=== PATIENT | male | born 1950 | race Two or more races ===

== ENCOUNTER 2018-07-14 06:29 | Inpatient (IN) | payer OTHER ==
--- NOTE | 2018-07-13 14:11 | Pre-Procedure Note/Attestation ---
Pre-Procedure Note/Attestation Complete Prior to Procedure Planned Procedure: left Procedure Narrative: left total knee arthroplasty Indications for Procedure Pre-Operative Diagnosis: Left knee arthritis Attestation I attest that I discussed the nature of the procedure; its benefits; risks and complications; and alternatives (and the risks and benefits of such alternatives ), prior to the procedure, with the patient (or the patient's legal vendor representatives). I attest that, if there was a reasonable possibility of needing a blood transfusion, the patient (or the patient's legal vendor representatives) was given the [facility] standardized written summary, pursuant to the Rhett Kari Blood Safety Act ([place] Health and Safety Code # 1645, as amended). I attest that I re-evaluated the patient just prior to the surgery and that there has been no change in the patient's H&P, except as documented below: NONE Steve Colorado MD Jul 13, 2018 14:11
[~2018-07-14] VITALS: Ht 174 cm; Wt 107.4 kg
[2018-07-14] VITALS (12 sets, daily range): BP systolic 103–131; BP diastolic 50–79
[~2018-07-14 06:29] MED LIST: HYTRIN5 MG PO; LIPITOR40 MG ORAL; ceFAZolin 1gm in D5W 55ml IVPB ONE; celeBREX 200mg Cap **SURGERY PATIENTS ONLY ORAL ONE; oxyCONTIN 20mg tab ORAL ONE
[2018-07-14] MEDS ORDERED: Ropivacaine 5mg/ml Vial 30ml INJ ONE (07:18)
[2018-07-14] MEDS ORDERED: Lidocaine 1% MPF 10mg/ml 5ml ONE (07:18)
[2018-07-14] MEDS ORDERED: fentaNYL 100 mcg/2 mL IV ONE ×2 (07:22→11:02)
[2018-07-14] MEDS ORDERED: Midazolam 2mg/2ml Inj ONE (07:22)
[2018-07-14] MEDS ORDERED: Propofol 200mg/20ml IV ONE (07:23)
[2018-07-14] MEDS ORDERED: D5 1/2NS w/KCl 20mEq 1,000 ML IV SCH (07:40)
[2018-07-14] MEDS ORDERED: Morphine Sulfate 4mg/ml Inj (IV USE ONLY) IVP PRN (07:45)
[2018-07-14] MEDS ORDERED: Norco 5mg/325mg tab ORAL PRN (07:45)
[2018-07-14] MEDS ORDERED: HYDROcodone/Acetamin 7.5/325 tab ORAL PRN ×2 (07:45→16:00)
[2018-07-14] MEDS ORDERED: Milk of Magnesia 30ml Ud ORAL PRN ×2 (07:45→16:00)
[2018-07-14] MEDS ORDERED: Morphine Sulfate 2mg/ml Inj(IV/IM USE ONLY) IVP PRN ×5 (07:45→16:00)
[2018-07-14] MEDS ORDERED: Zemuron 50mg/5ml Inj IV ONE (08:08)
--- NOTE | 2018-07-14 08:19 | Anethesia Preoperative Eval ---
Anesthesia Pre-op PMH/ROS General Date of Evaluation: Jul 14, 2018 Time of Evaluation: 08:15 Anesthesiologist: Palak ASA Score: ASA 3 Mallampati Score Class I : Soft palate, uvula, fauces, pillars visible Class II: Soft palate, uvula, fauces visible Class III: Soft palate, base of uvula visible Class IV: Only hard plate visible Mallampati Classification: Class II Surgeon: Miroslava Diagnosis: L knee DJD Surgical Procedure: L knee arthroplasty Anesthesia History: none Social History: alcohol use - occasional Family History: no anesthesia problems Allergies: Coded Allergies: No Known Allergies (Unverified , 07/06/18) Past Medical History Cardiovascular: Reports: arrhythmia; Denies: HTN, CAD, NC, valve dz, other Pulmonary: Denies: asthma, COPD, APRIL, other Gastrointestinal/Genitourinary: Reports: GERD, other - BPH s/p TUPR; Denies: CRI, ESRD Neurologic/Psychiatric: Reports: other - chronic pain; Denies: dementia, CVA, depression/anxiety, TIA Endocrine: Denies: DM, hypothyroidism, steroids, other HEENT: Reports: cataract (L), cataract (R) - s/p Sx bilateral Hematology/Immune: Reports: anemia - mild; Denies: DVT, bleeding disorder, other Musculoskeletal/Integumentary: Reports: DJD; Denies: OA, RA, DDD, edema, other Other: obesity PMH Narrative: as above PSxH Narrative: Back Sx x 3, TUPR, T&A Anesthesia Pre-op Phys. Exam Physician Exam Last Vital Signs Date Time Temp Pulse Resp B/P (MAP) Pulse Ox O2 Delivery O2 Flow Rate FiO2 07/14/18 07:30 98.1 55 20 111/65 (80) 100 98.1 07/14/18 07:16 Room Air Constitutional: NAD Neurologic: CN 2-12 intact Cardiovascular: RRR, no M/R/G Respiratory: CTA Gastrointestinal: S/NT/ND Airway Exam Mallampati Score: Class II MO: limited Neck: stiff ROM: limited Teeth: missing Dentures: no upper, no lower Anesthesia Pre-op A/P Labs see chart Studies Pre-op Studies: EKG - NSR, CXR - WNL, echo - EF 60%, other - Negative stress test Risk Assessment & Plan Assessment: ASA 3 Plan: GA with LMA L femoral nerve block for postoperative pain control Status Change Before Surgery: No Pre-Antibiotics Drug: Ancef 2gr Given Within 1 Hr of Incision: Yes Time Given: 09:10 Joaquín Cid MD Jul 14, 2018 08:19
[2018-07-14] MEDS ORDERED: Bacitracin 50000 Units Vial ONE (08:26)
[2018-07-14] MEDS ORDERED: NeoSporin Gu Irrig 1ml Amp IRRIG ONE (08:26)
[2018-07-14] MEDS ORDERED: Tranexamic Acid 500 MG in NS 55 ML IVPB ONE (08:30)
[2018-07-14] MEDS ORDERED: Tranexamic Acid 1,000 MG in NS 55 ML IVPB ONE (08:30)
[2018-07-14] MEDS ORDERED: Docusate 100mg cap ORAL SCH (09:00)
[2018-07-14] MEDS ORDERED: Enoxaparin 40mg Inj SUBQ SCH (09:00)
[2018-07-14] MEDS ORDERED: oxyCONTIN 20mg tab ORAL SCH (09:00)
[2018-07-14] MEDS ORDERED: celeBREX 200mg Cap **SURGERY PATIENTS ONLY ORAL SCH (09:00)
[2018-07-14] MEDS ORDERED: ePHEDrine 50mg/ml Inj ONE (09:41)
[2018-07-14] MEDS ORDERED: Sodium Chloride 10ml vial INJ ONE ×2 (09:41→10:00)
[2018-07-14] MEDS ORDERED: Morphine Sulfate 10mg/ml Inj ONE (09:59)
[2018-07-14] MEDS ORDERED: Ketorolac 30mg Inj ONE (10:00)
[2018-07-14] MEDS ORDERED: NS Irrig 1000ml IRRIG ONE (10:30)
[2018-07-14] MEDS ORDERED: LR 1000ml 1,000 ML IVLG SCH (10:36)
[2018-07-14] MEDS ORDERED: Meperidine 50mg/ml Inj(FOR RIGORS ONLY) IV PRN (10:45)
[2018-07-14] MEDS ORDERED: Midazolam 2mg/2ml Inj IVP PRN (10:45)
[2018-07-14] MEDS ORDERED: fentaNYL 100 mcg/2 mL IV PRN (10:45)
[2018-07-14] MEDS ORDERED: Ketorolac 30mg Inj IV PRN (10:45)
[2018-07-14] MEDS ORDERED: DiphenhydrAMINE 50mg/ml Inj IVP PRN (10:45)
--- NOTE | 2018-07-14 12:19 | Brief Operative Note ---
Immediate Post Operative Note Operative Note Chief Complaint: left knee pain Pre-op Diagnosis: left knee arthritis Procedure: left tka Post-op Diagnosis: same as pre-op Findings: consistent w/pre-op dx studies Surgeon: md vianca Electronic Data Interchange Specialist: juan m cantor Anesthesiologist: md bipin Anesthesia: general Specimen: yes Complications: none Condition: stable Fluids: ns Estimated Blood Loss: minimal Drains: none Implant(s) used?: Yes - Kiesha Hobbs Jul 14, 2018 12:19
--- NOTE | 2018-07-14 12:33 | Immediate Post-Op Evaluation ---
Immediate Post-Op Evalulation Immediate Post-Op Evalulation Procedure: L total knee arthroplasty Date of Evaluation: Jul 14, 2018 Time of Evaluation: 12:31 IV Fluids: 1500 Blood Products: none Estimated Blood Loss: 100 Urinary Output: 500 Blood Pressure Systolic: 116 Blood Pressure Diastolic: 74 Pulse Rate: 86 Respiratory Rate: 20 O2 Sat by Pulse Oximetry: 98 Temperature (Fahrenheit): 97.8 Pain Score (1-10): 3 Nausea: No Vomiting: No Complications none Patient Status: awake, patent, none Hydration Status: adequate Joaquín Cid MD Jul 14, 2018 12:33
[2018-07-14] MEDS ORDERED: ceFAZolin sod 2 GM in D5W 110 ML IV SCH (14:00)
--- NOTE | 2018-07-14 14:45 | Diagnostic Imaging Report ---
Indication: Postoperative, status post total knee arthroplasty Technique: 2 views of the left knee Comparison: none Findings: There is a left knee arthroplasty in good position, appearing well aligned. Retained air from the surgical exposure is seen within the soft tissues. No acute fractures or dislocation Impression: Postoperative left knee. No unusual features
[2018-07-14] MEDS: ceFAZolin 1gm/50ml Premix 50 ML IV SCH (16:47)
[2018-07-14] MEDS: D5 1/2NS w/KCl 20mEq 1,000 ML IV SCH (16:47)
[2018-07-14] MEDS: Docusate 100mg cap ORAL SCH (18:18)
[2018-07-14] MEDS: Norco 5mg/325mg tab ORAL PRN ×2 (18:18→23:18)
--- NOTE | 2018-07-14 18:43 | General Progress Note ---
Assessment/Plan Status Narrative s/p total knee arthroplasty hyperlipid BPH Assessment/Plan resume preop meds terazosin and lipittor pt ot dvt prophyalxis monitor cbc paincontrol perioperative prophyalxis antibiotic Subjective Date patient seen: Jul 14, 2018 Time patient seen: 18:35 Constitutional: Reports: no symptoms HEENT: Reports: no symptoms Cardiovascular: Reports: no symptoms Respiratory: Reports: no symptoms Allergies: Coded Allergies: No Known Allergies (Unverified , 07/06/18) Objective Last 24 Hour Vital Signs Date Time Temp Pulse Resp B/P (MAP) Pulse Ox O2 Delivery O2 Flow Rate FiO2 07/14/18 16:00 98.0 65 20 103/62 (76) 100 98.0 07/14/18 13:50 77 16 116/68 98 Nasal Cannula 3 07/14/18 13:30 97.4 07/14/18 13:23 97.6 75 15 123/69 97 Nasal Cannula 3 97.6 07/14/18 13:15 79 16 119/65 97 Nasal Cannula 3 07/14/18 13:00 77 18 131/69 98 Nasal Cannula 3 07/14/18 12:59 97.5 07/14/18 12:50 74 14 119/68 96 Nasal Cannula 3 07/14/18 12:40 91 20 131/66 99 Simple Mask 6 07/14/18 12:33 208.0 86 20 98 07/14/18 12:30 87 16 120/79 98 Simple Mask 6 07/14/18 12:25 94 18 114/76 100 Simple Mask 6 07/14/18 12:18 97.4 92 20 118/75 99 Simple Mask 6 97.4 07/14/18 07:30 98.1 55 20 111/65 (80) 100 98.1 07/14/18 07:16 Room Air Height (Feet): 5 Height (Inches): 8.50 Weight (Pounds): 230 General Appearance: WD/WN Neck: other - no jvd Cardiovascular: normal rate, regular rhythm Respiratory/Chest: lungs clear Abdomen: normal bowel sounds, non tender, soft Extremities: other - no clubbing or cyanosis Ta Coombs MD Jul 14, 2018 18:43
[2018-07-14] MEDS: oxyCONTIN 20mg tab ORAL SCH (20:29)
[2018-07-14] MEDS: Enoxaparin 30mg Inj SUBQ SCH (20:30)
--- NOTE | 2018-07-14 23:47 | Operative Note - Dictated ---
DATE OF OPERATION: 07/14/2018 PREOPERATIVE DIAGNOSIS: Left knee end-stage arthritis, medial compartment. POSTOPERATIVE DIAGNOSIS: Left knee end-stage arthritis, medial compartment. PROCEDURE: Left total knee arthroplasty using Laney system, size 5 Triathlon femur, size 6 Triathlon primary tibial base plate, 33 mm ultra cross-linked polyethylene patella, and 11 mm ultra cross-linked polyethylene insert. SURGEON: Steve Colorado M.D. CITRIX ADMINISTRATOR: Kiesha Choe PA-C ANESTHESIOLOGIST: Joaquín Cid M.D. ANESTHESIA: General LMA anesthesia. ESTIMATED BLOOD LOSS: Less than 20 mL. COMPLICATIONS: None. TOURNIQUET TIME: 80 minutes. BRIEF HISTORY: The patient is a pleasant 68-year-old gentleman who has had ongoing left knee pain. He failed nonoperative treatment. After full discussion of risks and benefits of surgery and complications associated with it including infection, bleeding, neurovascular complication, possibility of continued pain, possibility of continued stiffness, possible loss of motion, possible instability, possibility of need for further surgery, possible need for other complications that may arise down the line, hardware failure, as well as DVT and PE, he opted for surgical treatment as described above. OPERATIVE PROCEDURE: The patient was brought to the operating table and was placed supine. All pressure points were well padded. General LMA anesthesia was induced. The left knee was prepped and draped in usual sterile fashion. The left leg was exsanguinated and tourniquet was inflated to 275 mmHg. Prior to tourniquet inflation, preop antibiotics and tranexamic acid was given. A standard anterior approach to the knee was undertaken. Medial parapatellar arthrotomy was performed. Medial release was performed. The patella was everted and the knee was flexed, and ACL and PCL were resected. Entry into the femur was obtained using a drill. An intramedullary guide was placed in the femur and 5-degree valgus cut was performed without any complication. Subsequently the sizing was performed and size 5 appeared to be the right size. The guide was placed in 3 degrees of external rotation, and anterior, posterior, and chamfer cuts were performed. At this point, size 5 femur was applied and there was excellent press fit. PEG holes were drilled and in the process, femur was lateralized slightly. Once this was performed, care was given to the tibia. The trial femur was removed. The posterior, medial and lateral retractors were placed around the tibia. The external tibial guide was then applied and slope was recreated and 2 mm was taken off the most involved side, which was the medial side. At this point, a standard tibial cut was performed, recreating anatomical axis. Once this was completed, the flexion-extension gap was checked and appeared to be perfect. At this point, the tibial sizing was performed and size 6 appeared to be the right size. The central PEG was then punched. At this point, the tibial trial, femoral trial, and poly trials were placed and size 9 appeared to be slightly loose and size 11 appeared to be the perfect size. There was excellent medial lateral as well as anterior posterior stability. At this point, the care was given to the patella. The patella was everted. It measured 24 mm. A standard freehand cut of the patella was performed and final patella was 13 mm. The sizing was performed and 33 mm patella was the right size. PEG holes were drilled. At this point, all components were placed through range of motion and stability, and range of motion was checked. This was excellent. Patellofemoral tracking was checked and it was perfect. At this point, all wounds were thoroughly irrigated using copious amount of fluid. All trial components were removed. Knee was washed out thoroughly with Simpulse irrigation. Cement was mixed and the tibial component, femoral component, patella components were all cemented. All excess cement was removed. Subsequently, the trialing was performed and size 11 poly appeared to be the right size with full extension, full flexion, and stability at 0, 30 degrees, 45 degrees, and 90 degrees of flexion. Therefore, at this point, the locking mechanism of the tibia was checked and was completely freed and the actual poly was then locked in and rechecked and appeared to be in perfect locking. Wounds were thoroughly irrigated using copious amount of fluid. At this point, the knee was extended. The tourniquet was deflated. All bleeders were stopped. Subsequently the medial parapatellar arthrotomy was closed using #1 Vicryl suture. Subcutaneous tissue was closed using 2-0 Vicryl suture. The skin was closed using 3-0 Monocryl suture and a sterile standard dressing was applied. The patient was placed in a knee immobilizer, was taken to recovery room in stable condition. All lap counts and instrument counts were correct. Steve Colorado M.D. DR: Sandra JOB#: [id number] CC:
[2018-07-15] VITALS: BP 113/63
[2018-07-15] MEDS: ceFAZolin 1gm/50ml Premix 50 ML IV SCH (00:42)
[2018-07-15] MEDS: Morphine Sulfate 4mg/ml Inj (IV USE ONLY) IVP PRN ×4 (03:32→21:35)
[2018-07-15] MEDS: D5 1/2NS w/KCl 20mEq 1,000 ML IV SCH ×2 (03:33→21:28)
[2018-07-15 04:00] VITALS: BP 105/57
[2018-07-15] MEDS: Norco 5mg/325mg tab ORAL PRN ×2 (06:13→23:58)
--- NOTE | 2018-07-15 07:19 | Orthopedic Progress Note ---
Orthopedic - Progress Note Subjective Symptoms: improved Objective Vital Signs Laboratory Tests Test 07/15/18 06:40 White Blood Count Pending Red Blood Count Pending Hemoglobin Pending Hematocrit Pending Mean Corpuscular Volume Pending Mean Corpuscular Hemoglobin Pending Mean Corpuscular Hemoglobin Concent Pending Red Cell Distribution Width Pending Platelet Count Pending Mean Platelet Volume Pending Neutrophils (%) (Auto) Pending Lymphocytes (%) (Auto) Pending Monocytes (%) (Auto) Pending Eosinophils (%) (Auto) Pending Basophils (%) (Auto) Pending Last 24 Hour Vital Signs Date Time Temp Pulse Resp B/P (MAP) Pulse Ox O2 Delivery O2 Flow Rate FiO2 07/15/18 04:00 99.5 67 19 105/57 (73) 98 99.5 07/15/18 00:00 99.1 56 18 113/63 (80) 100 99.1 07/14/18 21:00 Room Air 07/14/18 20:00 99.5 54 18 106/50 (68) 100 99.5 07/14/18 16:00 98.0 65 20 103/62 (76) 100 98.0 07/14/18 13:50 77 16 116/68 98 Nasal Cannula 3 07/14/18 13:30 97.4 07/14/18 13:23 97.6 75 15 123/69 97 Nasal Cannula 3 97.6 07/14/18 13:15 79 16 119/65 97 Nasal Cannula 3 07/14/18 13:00 77 18 131/69 98 Nasal Cannula 3 07/14/18 12:59 97.5 07/14/18 12:50 74 14 119/68 96 Nasal Cannula 3 07/14/18 12:40 91 20 131/66 99 Simple Mask 6 07/14/18 12:33 208.0 86 20 98 07/14/18 12:30 87 16 120/79 98 Simple Mask 6 07/14/18 12:25 94 18 114/76 100 Simple Mask 6 07/14/18 12:18 97.4 92 20 118/75 99 Simple Mask 6 97.4 07/14/18 07:30 98.1 55 20 111/65 (80) 100 98.1 I&O Intake and Output 07/14/18 07/15/18 19:00 07:00 Intake Total 2045 ml Output Total 600 ml Balance 1445 ml Intake Oral 1220 ml IV Total 825 ml Output Urine Total 600 ml Stool Total 0 ml Wound: clean, dry, intact Drains: none Neuro Status: normal Vascular Status: normal Additional Comments Xray reviewed- excellent Assessment Post-op Diagnosis POD 1 Procedure Performed left tka Plan Plan: PT, discharge plan - to rehab on friday, other - labs pending, will follow Kiesha Choe Jul 15, 2018 07:19
[2018-07-15 07:25] LABS: BASOPHILS % (AUTO) 0.6 % (0.0-2.0); EOSINOPHILS % (AUTO) 1.7 % (0.0-3.0); HEMATOCRIT 35.2 % (42.0-52.0); HEMOGLOBIN 12.1 G/DL (14.2-18.0); LYMPHOCYTES % (AUTO) 14.8 % (20.0-45.0); MEAN CORPUSCULAR VOLUME 93 FL (80-99); MONOCYTES % (AUTO) 9.7 % (1.0-10.0); NEUTROPHILS % (AUTO) 73.2 % (45.0-75.0); PLATELET COUNT 159 K/UL (150-450); RED BLOOD COUNT 3.76 M/UL (4.70-6.10); RED CELL DISTRIBUTION WIDTH 11.7 % (11.6-14.8); WHITE BLOOD COUNT 8.7 K/UL (4.8-10.8)
[2018-07-15 08:00] VITALS: BP 119/64
[2018-07-15] MEDS: Docusate 100mg cap ORAL SCH ×3 (08:50→17:33)
[2018-07-15] MEDS: oxyCONTIN 20mg tab ORAL SCH ×2 (08:50→21:29)
[2018-07-15] MEDS: celeBREX 200mg Cap **SURGERY PATIENTS ONLY ORAL SCH (08:51)
[2018-07-15] MEDS ORDERED: Acetaminophen IV (Non formulary) 1,000 MG/100 ML ML IV ONE (09:00)
[2018-07-15] MEDS ORDERED: LR 1000ml ONE (09:00)
[2018-07-15] MEDS: Enoxaparin 30mg Inj SUBQ SCH (09:00)
[2018-07-15] MEDS ORDERED: Atropine Sulfate 0.4mg/ml inj ONE (09:00)
[2018-07-15] MEDS ORDERED: NS Irrig 1000ml ONE (09:00)
[2018-07-15] MEDS ORDERED: Sterile Water Irrig 1000ml IRRIG ONE (09:00)
--- NOTE | 2018-07-15 10:44 | 48 Hour Post Anesthesia Eval ---
Post Anesthesia Evaluation Procedure: L total knee arthroplasty Date of Evaluation: Jul 15, 2018 Time of Evaluation: 10:43 Blood Pressure Systolic: 116 0: 72 Pulse Rate: 68 Respiratory Rate: 20 Temperature (Fahrenheit): 97.6 O2 Sat by Pulse Oximetry: 98 Airway: patent Nausea: No Vomiting: No Pain Intensity: 3 Hydration Status: adequate Cardiopulmonary Status: stable Mental Status/LOC: patient returned to baseline Follow-up Care/Observations: n/a Post-Anesthesia Complications: none Follow-up care needed: N/A Joaquín Cid MD Jul 15, 2018 10:44
[2018-07-15 12:32] VITALS: BP 116/65
--- NOTE | 2018-07-15 15:24 | General Progress Note ---
Assessment/Plan Status Narrative S/P TOTAL KNEE ARTHROPLASTY DOING WELL NO FEVER NO CHILLS HAS A LOT OF PAIN Assessment/Plan resume preop meds terazosin and lipittor pt ot dvt prophyalxis monitor cbc paincontrol perioperative prophyalxis antibiotic NEEDS MORE PHYSICAL THERPAY Subjective Date patient seen: Jul 15, 2018 Time patient seen: 15:22 Constitutional: Reports: no symptoms HEENT: Reports: no symptoms Cardiovascular: Reports: no symptoms Respiratory: Reports: no symptoms Allergies: Coded Allergies: No Known Allergies (Unverified , 07/06/18) Subjective has been watt ving a lot ofpain no fever nochills no carlee stpain no dilpoipia Objective Last 24 Hour Vital Signs Date Time Temp Pulse Resp B/P (MAP) Pulse Ox O2 Delivery O2 Flow Rate FiO2 07/15/18 14:35 99.4 07/15/18 14:05 99.4 07/15/18 12:32 99.4 61 20 116/65 (82) 98 99.4 07/15/18 10:44 207.7 68 20 98 07/15/18 09:00 Room Air 07/15/18 08:52 99.5 07/15/18 08:50 99.5 07/15/18 08:00 99.5 67 20 119/64 (82) 96 99.5 07/15/18 04:00 99.5 67 19 105/57 (73) 98 99.5 07/15/18 00:00 99.1 56 18 113/63 (80) 100 99.1 07/14/18 21:00 Room Air 07/14/18 20:00 99.5 54 18 106/50 (68) 100 99.5 07/14/18 16:00 98.0 65 20 103/62 (76) 100 98.0 Intake and Output 07/14/18 07/15/18 19:00 07:00 Intake Total 2045 ml Output Total 600 ml Balance 1445 ml Intake Oral 1220 ml IV Total 825 ml Output Urine Total 600 ml Stool Total 0 ml Laboratory Tests 07/15/18 06:40: White Blood Count 8.7, Red Blood Count 3.76L, Hemoglobin 12.1L, Hematocrit 35.2L , Mean Corpuscular Volume 93, Mean Corpuscular Hemoglobin 32.2H, Mean Corpuscular Hemoglobin Concent 34.5, Red Cell Distribution Width 11.7, Platelet Count 159, Mean Platelet Volume 7.4, Neutrophils (%) (Auto) 73.2, Lymphocytes (% ) (Auto) 14.8L, Monocytes (%) (Auto) 9.7, Eosinophils (%) (Auto) 1.7, Basophils (%) (Auto) 0.6 Height (Feet): 5 Height (Inches): 8.50 Weight (Pounds): 236 General Appearance: WD/WN Neck: non-tender Cardiovascular: normal rate, regular rhythm, no JVD Respiratory/Chest: lungs clear Abdomen: non tender, soft Extremities: other - no clubbing Ta Coombs MD Jul 15, 2018 15:24
[2018-07-15 16:00] VITALS: BP 116/65
[2018-07-15 20:00] VITALS: BP 108/57
[2018-07-15] MEDS: Atorvastatin 20mg tab ORAL SCH (21:29)
[2018-07-15] MEDS: ceFAZolin sod 1 GM in NS 55 ML IVP SCH (22:23)
[2018-07-15 22:25] LABS: BASOPHILS % (AUTO) 0.8 % (0.0-2.0); EOSINOPHILS % (AUTO) 0.1 % (0.0-3.0); HEMOGLOBIN 11.6 G/DL (14.2-18.0); LYMPHOCYTES % (AUTO) 8.1 % (20.0-45.0); MEAN CORPUSCULAR VOLUME 95 FL (80-99); MONOCYTES % (AUTO) 9.7 % (1.0-10.0); NEUTROPHILS % (AUTO) 81.3 % (45.0-75.0); PLATELET COUNT 165 K/UL (150-450); RED BLOOD COUNT 3.58 M/UL (4.70-6.10); RED CELL DISTRIBUTION WIDTH 11.5 % (11.6-14.8); WHITE BLOOD COUNT 12.2 K/UL (4.8-10.8)
[2018-07-15 22:29] LABS: ANION GAP 9 mmol/L (5-15); BLOOD UREA NITROGEN 10 mg/dL (7-18); CALCIUM 8.3 MG/DL (8.5-10.1); CARBON DIOXIDE 25 MMOL/L (21-32); CHLORIDE 106 MMOL/L (98-107); CREATININE 0.9 MG/DL (0.55-1.30); POTASSIUM 3.6 MMOL/L (3.5-5.1); SODIUM 140 MMOL/L (136-145)
[2018-07-15 22:34] LABS: ALANINE AMINOTRANSFERASE 26 U/L (12-78); ALKALINE PHOSPHATASE 103 U/L (46-116); ASPARTATE AMINO TRANSFERASE 21 U/L (15-37); BILIRUBIN,TOTAL 0.5 MG/DL (0.2-1.0)
[2018-07-16] VITALS (13 sets, daily range): BP systolic 98–134; BP diastolic 57–78
[2018-07-16] MEDS: ceFAZolin sod 1 GM in NS 55 ML IVP SCH ×3 (05:03→21:03)
[2018-07-16] MEDS ORDERED: Sterile Water For Irrig 2000ml IRRIG ONE ×2 (06:00)
[2018-07-16] MEDS ORDERED: Sterile Water Irrig 1000ml IRRIG ONE (06:00)
[2018-07-16] MEDS ORDERED: LR 1000ml ONE (06:00)
[2018-07-16] MEDS ORDERED: NS Irrig 1000ml ONE (06:00)
--- NOTE | 2018-07-16 06:10 | Urology Progress Note ---
Assessment/Plan Assessment/Plan urinary retention BPH probable neurogenic bladder hematuria r/o urethral stx, BNC or false passage will need to proceed with cysto on urgent basis will place sp tube if not able to pass urethral carvajal d/w pt fully d/w Dr. Coombs d/w Dr. Puente, ok to bend pt's knee abx prophylaxis lovenox was held Subjective Allergies: Coded Allergies: No Known Allergies (Unverified , 07/06/18) Subjective pt has not voided all night Objective Last 24 Hour Vital Signs Date Time Temp Pulse Resp B/P (MAP) Pulse Ox O2 Delivery O2 Flow Rate FiO2 07/16/18 04:32 98.6 82 19 105/60 (75) 98 98.6 07/16/18 00:17 99.1 98 20 134/58 (83) 96 99.1 07/15/18 23:18 Room Air 07/15/18 20:00 99.1 78 19 108/57 (74) 97 99.1 07/15/18 18:30 98.8 98.8 07/15/18 17:34 101.3 07/15/18 17:30 101.3 101.3 07/15/18 16:37 100.1 07/15/18 16:17 Room Air 07/15/18 16:00 100.1 87 18 116/65 (82) 98 100.1 07/15/18 14:35 99.4 07/15/18 14:05 99.4 07/15/18 12:32 99.4 61 20 116/65 (82) 98 99.4 07/15/18 10:44 207.7 68 20 98 07/15/18 09:00 Room Air 07/15/18 08:52 99.5 07/15/18 08:50 99.5 07/15/18 08:00 99.5 67 20 119/64 (82) 96 99.5 Intake and Output 07/15/18 07/16/18 19:00 07:00 Intake Total 1490 ml 55 ml Output Total 2425 ml 0 ml Balance -935 ml 55 ml Intake Oral 590 ml IV Total 900 ml 55 ml Output Urine Total 2425 ml 0 ml Current Medications Medications (Trade) Dose Ordered Sig/Yuri Route PRN Reason Start Time Stop Time Status Last Admin Dose Admin Acetaminophen (Tylenol) 650 mg Q4H PRN ORAL temp>100.2 or headache 07/14/18 16:00 08/13/18 15:59 07/15/18 16:37 Acetaminophen/ Hydrocodone Bitart (Montreal 5/325) 2 tab Q4H PRN ORAL pain scores 4-10 07/14/18 16:00 07/21/18 15:59 07/15/18 23:58 Acetaminophen/ Hydrocodone Bitart (Montreal 7.5/325) 1 tab Q4H PRN ORAL Mild Pain (Pain Scale 1-3) 07/14/18 16:00 07/21/18 15:59 Atorvastatin Calcium (Lipitor) 40 mg BEDTIME ORAL 07/15/18 21:00 08/14/18 20:59 07/15/18 21:29 Cefazolin Sodium 1 gm/Sodium Chloride 55 ml @ 110 mls/hr Q8HR IVP 07/15/18 22:00 07/22/18 21:59 07/16/18 05:03 Celecoxib (CeleBREX) 200 mg DAILY ORAL 07/15/18 09:00 08/14/18 08:59 07/15/18 08:51 Docusate Sodium (Colace) 100 mg THREE TIMES A DAY ORAL 07/14/18 18:00 08/13/18 17:59 07/15/18 17:33 Ferrous Sulfate (Feosol) 325 mg THREE TIMES A DAY ORAL 07/14/18 18:00 08/13/18 17:59 07/15/18 17:33 Magnesium Hydroxide (Mom) 30 ml DAILY PRN ORAL Constipation 07/14/18 16:00 08/13/18 15:59 Morphine Sulfate (Morphine Sulfate) 1 mg Q4H PRN IVP Mild Pain (Pain Scale 1-3) 07/14/18 16:00 07/21/18 15:59 Morphine Sulfate (Morphine Sulfate) 2 mg Q4H PRN IVP Moderate Pain (Pain Scale 4-6) 07/14/18 16:00 07/21/18 15:59 Morphine Sulfate (Morphine Sulfate) 4 mg Q4H PRN IVP Severe Pain (Pain Scale 7-10) 07/14/18 16:00 07/21/18 15:59 07/15/18 21:35 Ondansetron HCl (Zofran) 4 mg Q6H PRN IVP Nausea & Vomiting 07/14/18 16:00 08/13/18 15:59 Oxycodone HCl (OxyCONTIN) 20 mg EVERY 12 HOURS ORAL 07/14/18 21:00 07/21/18 20:59 07/15/18 21:29 Temazepam (Restoril) 7.5 mg HSPRN PRN ORAL Insomnia 07/14/18 21:00 07/21/18 20:59 Terazosin HCl (Hytrin) 15 mg DAILY ORAL 07/15/18 18:45 08/14/18 18:44 07/15/18 19:04 Laboratory Tests 07/15/18 06:40: White Blood Count 8.7, Red Blood Count 3.76L, Hemoglobin 12.1L, Hematocrit 35.2L , Mean Corpuscular Volume 93, Mean Corpuscular Hemoglobin 32.2H, Mean Corpuscular Hemoglobin Concent 34.5, Red Cell Distribution Width 11.7, Platelet Count 159, Mean Platelet Volume 7.4, Neutrophils (%) (Auto) 73.2, Lymphocytes (% ) (Auto) 14.8L, Monocytes (%) (Auto) 9.7, Eosinophils (%) (Auto) 1.7, Basophils (%) (Auto) 0.6 07/15/18 22:02: White Blood Count 12.2H, Red Blood Count 3.58L, Hemoglobin 11.6L, Hematocrit 34.0L, Mean Corpuscular Volume 95, Mean Corpuscular Hemoglobin 32.3H, Mean Corpuscular Hemoglobin Concent 34.0, Red Cell Distribution Width 11.5L, Platelet Count 165, Mean Platelet Volume 6.6, Neutrophils (%) (Auto) 81.3H, Lymphocytes (%) (Auto) 8.1L, Monocytes (%) (Auto) 9.7, Eosinophils (%) (Auto) 0.1, Basophils (%) (Auto) 0.8, Prothrombin Time 10.8, Prothromb Time International Ratio 1.0, Activated Partial Thromboplast Time 34H, Sodium Level 140, Potassium Level 3.6, Chloride Level 106, Carbon Dioxide Level 25, Anion Gap 9, Blood Urea Nitrogen 10, Creatinine 0.9, Estimat Glomerular Filtration Rate > 60, Glucose Level 153H, Calcium Level 8.3L, Total Bilirubin 0.5, Aspartate Amino Transf (AST/SGOT) 21, Alanine Aminotransferase (ALT/SGPT) 26, Alkaline Phosphatase 103, Total Protein 6.1L, Albumin 3.0L, Globulin 3.1, Albumin/Globulin Ratio 1.0 Height (Feet): 5 Height (Inches): 8.50 Weight (Pounds): 236 Objective exam shows sp fullness HAYLIE NGUYEN Jul 16, 2018 06:10
[2018-07-16] MEDS ORDERED: Lidocaine 1% MPF 10mg/ml 5ml ONE (06:13)
[2018-07-16] MEDS ORDERED: Propofol 200mg/20ml IV ONE (06:13)
[2018-07-16] MEDS ORDERED: Midazolam 2mg/2ml Inj ONE (06:13)
[2018-07-16] MEDS ORDERED: fentaNYL 100 mcg/2 mL IV ONE ×2 (06:14→07:06)
--- NOTE | 2018-07-16 06:15 | Pre-Procedure Note/Attestation ---
Pre-Procedure Note/Attestation Complete Prior to Procedure Planned Procedure: not applicable Procedure Narrative: cysto, urethral calib, posss OIU, poss sp tube Indications for Procedure Pre-Operative Diagnosis: urinary retention, diff cath Attestation I attest that I discussed the nature of the procedure; its benefits; risks and complications; and alternatives (and the risks and benefits of such alternatives ), prior to the procedure, with the patient (or the patient's legal teleservices representative). I attest that, if there was a reasonable possibility of needing a blood transfusion, the patient (or the patient's legal teleservices representative) was given the [facility] standardized written summary, pursuant to the Rhett Lampasas Blood Safety Act ([place] Health and Safety Code # 1645, as amended). I attest that I re-evaluated the patient just prior to the surgery and that there has been no change in the patient's H&P, except as documented below: see progress notes HAYLIE NGUYEN Jul 16, 2018 06:15
[2018-07-16] MEDS ORDERED: ePHEDrine 50mg/ml Inj ONE (06:26)
--- NOTE | 2018-07-16 06:53 | Anethesia Preoperative Eval ---
Anesthesia Pre-op PMH/ROS General Date of Evaluation: Jul 16, 2018 Time of Evaluation: 05:50 Anesthesiologist: ASA Score: ASA 3 Mallampati Score Class I : Soft palate, uvula, fauces, pillars visible Class II: Soft palate, uvula, fauces visible Class III: Soft palate, base of uvula visible Class IV: Only hard plate visible Mallampati Classification: Class II Surgeon: curt Diagnosis: urethral stricture Surgical Procedure: cystoscopy, urethral dilation Anesthesia History: none Allergies: Coded Allergies: CEPHALEXIN (Verified Allergy, Unknown, 07/16/18) Medications: see eMAR Past Medical History Cardiovascular: Reports: arrhythmia; Denies: HTN, CAD, OR, valve dz, other Pulmonary: Denies: asthma, COPD, APRIL, other Gastrointestinal/Genitourinary: Reports: other - enlarged prostate, urethral stricture; Denies: GERD, CRI, ESRD Neurologic/Psychiatric: Denies: dementia, CVA, depression/anxiety, TIA, other Endocrine: Denies: DM, hypothyroidism, steroids, other HEENT: Reports: cataract (R) Hematology/Immune: Denies: anemia, DVT, bleeding disorder, other Musculoskeletal/Integumentary: Reports: other - recent left total knee Other: obesity PSxH Narrative: left tootal knee, back surgery Anesthesia Pre-op Phys. Exam Physician Exam Last Vital Signs Date Time Temp Pulse Resp B/P (MAP) Pulse Ox O2 Delivery O2 Flow Rate FiO2 07/16/18 04:32 98.6 82 19 105/60 (75) 98 98.6 07/15/18 23:18 Room Air 07/14/18 13:50 3 Constitutional: other - left knee pain Cardiovascular: RRR Respiratory: CTA Gastrointestinal: S/NT/ND Airway Exam Mallampati Score: Class II MO: full ROM: full Teeth: intact Dentures: no upper, no lower Anesthesia Pre-op A/P Labs Hematology Test 07/15/18 22:02 White Blood Count 12.2 K/UL (4.8-10.8) H Red Blood Count 3.58 M/UL (4.70-6.10) L Hemoglobin 11.6 G/DL (14.2-18.0) L Hematocrit 34.0 % (42.0-52.0) L Mean Corpuscular Volume 95 FL (80-99) Mean Corpuscular Hemoglobin 32.3 PG (27.0-31.0) H Mean Corpuscular Hemoglobin Concent 34.0 G/DL (32.0-36.0) Red Cell Distribution Width 11.5 % (11.6-14.8) L Platelet Count 165 K/UL (150-450) Mean Platelet Volume 6.6 FL (6.5-10.1) Neutrophils (%) (Auto) 81.3 % (45.0-75.0) H Lymphocytes (%) (Auto) 8.1 % (20.0-45.0) L Monocytes (%) (Auto) 9.7 % (1.0-10.0) Eosinophils (%) (Auto) 0.1 % (0.0-3.0) Basophils (%) (Auto) 0.8 % (0.0-2.0) Coagulation Test 07/15/18 22:02 Prothrombin Time 10.8 SEC (9.30-11.50) Prothromb Time International Ratio 1.0 (0.9-1.1) Activated Partial Thromboplast Time 34 SEC (23-33) H Chemistry Test 07/15/18 22:02 Sodium Level 140 MMOL/L (136-145) Potassium Level 3.6 MMOL/L (3.5-5.1) Chloride Level 106 MMOL/L (98-107) Carbon Dioxide Level 25 MMOL/L (21-32) Anion Gap 9 mmol/L (5-15) Blood Urea Nitrogen 10 mg/dL (7-18) Creatinine 0.9 MG/DL (0.55-1.30) Estimat Glomerular Filtration Rate > 60 mL/min (>60) Glucose Level 153 MG/DL (74-106) H Calcium Level 8.3 MG/DL (8.5-10.1) L Total Bilirubin 0.5 MG/DL (0.2-1.0) Aspartate Amino Transf (AST/SGOT) 21 U/L (15-37) Alanine Aminotransferase (ALT/SGPT) 26 U/L (12-78) Alkaline Phosphatase 103 U/L (46-116) Total Protein 6.1 G/DL (6.4-8.2) L Albumin 3.0 G/DL (3.4-5.0) L Globulin 3.1 g/dL Albumin/Globulin Ratio 1.0 (1.0-2.7) Risk Assessment & Plan Assessment: asa 3 Plan: GA Status Change Before Surgery: No Pre-Antibiotics Drug: ancef 1 gram Given Within 1 Hr of Incision: Yes Time Given: 06:30 Nelly Granados M.D. Jul 16, 2018 06:53
--- NOTE | 2018-07-16 07:00 | Immediate Post-Op Evaluation ---
Immediate Post-Op Evalulation Immediate Post-Op Evalulation Procedure: cystoscopy, urethrotomy Date of Evaluation: Jul 16, 2018 Time of Evaluation: 07:05 IV Fluids: LR 1000ml Blood Products: 0 Estimated Blood Loss: 0 Urinary Output: 30ml Blood Pressure Systolic: 123 Blood Pressure Diastolic: 65 Pulse Rate: 80 Respiratory Rate: 12 O2 Sat by Pulse Oximetry: 100 Temperature (Fahrenheit): 98.7 Pain Score (1-10): 0 Nausea: No Vomiting: No Complications none Patient Status: awake, patent, none Hydration Status: adequate Drug: ancef 1 gram Given Within 1 Hr of Incision: Yes Time Given: 06:30 Nelly Granados M.D. Jul 16, 2018 07:00
--- NOTE | 2018-07-16 07:00 | Consultation ---
DATE OF CONSULTATION: 07/16/2018 CONSULTING PHYSICIAN: Caleb Molina M.D. REFERRING PHYSICIAN: Ta Coombs M.D. REASON FOR CONSULTATION: For evaluation of difficult catheterization, retention hematuria. HISTORY OF PRESENT ILLNESS: This is a 68-year-old male. He is status post left total knee arthroplasty yesterday. He had an indwelling Giang, it was removed, after which significant hematuria was noted and he had difficulty voiding and when the nurses attempted to reinsert the Giang, it was met with resistance. Urology evaluation was requested. PAST MEDICAL HISTORY: As above. The patient does have a history of BPH. Apparently, he has had a TURP at a [facility] 2 years ago. MEDICATIONS: Current medication list was reviewed. ALLERGIES: No known drug allergies. PHYSICAL EXAMINATION: GENERAL: A well-developed and well-nourished male, in no acute distress. VITAL SIGNS: He did have a T-max of 101.3 degrees. ABDOMEN: Soft. There is old blood at the meatus. LABORATORY AND DIAGNOSTIC DATA: Laboratory studies showed white count is 8.7 and hemoglobin 12.1. PROCEDURE AT THE BEDSIDE: I did attempt to pass a regular Giagn, which was met with resistance. I also tried a coude catheter, which was also met with resistance. I then attempted to pass filiforms and followers. I passed a filiform, which was not able to go in to the bladder. I tried multiple different filiforms and they were met with resistance and I was not able to gain access to the bladder. IMPRESSION: 1. Urinary retention. 2. BPH history. 3. Rule out neurogenic bladder. 4. Hematuria secondary to Giang trauma. 5. Possible urethral stricture or bladder neck contracture post TURP. PLAN AND DISCUSSION: Again as noted above, the patient has resistance in the urethra and I believe, he either had the stricture or bladder neck contracture or false passage. The previous Giang may have not been in the bladder as there was significant bleeding upon removal and he may have a false passage from the inflated balloon. At this time, again I tried a coude without difficulty. I am not able to pass the filiform and the only other option would be to place a suprapubic tube or to do a cystoscopy, and I discussed this with the patient and if he is not able to urinate in the next few hours, then we may have to proceed with cystoscopy, and I did talk to him in detail. We will keep him NPO and stop his Lovenox in case. Thank you for this consultation. Caleb Molina M.D. DR: INDER JOB#: [id number] CC:
--- NOTE | 2018-07-16 07:05 | Brief Operative Note ---
Immediate Post Operative Note Operative Note Pre-op Diagnosis: urinary retention, diff cath Post-op Diagnosis: same as pre-op plus - tight bladder neck cotracture Surgeon: curt Anesthesiologist: Anesthesia: general Specimen: none Complications: none Condition: stable Fluids: NS Estimated Blood Loss: minimal Implant(s) used?: No HAYLIE NGUYEN Jul 16, 2018 07:05
--- NOTE | 2018-07-16 07:15 | 48 Hour Post Anesthesia Eval ---
Post Anesthesia Evaluation Procedure: cystoscopy, urethrotomy Date of Evaluation: Jul 16, 2018 Time of Evaluation: 07:30 Blood Pressure Systolic: 112 0: 58 Pulse Rate: 12 Respiratory Rate: 18 Temperature (Fahrenheit): 98.7 O2 Sat by Pulse Oximetry: 100 Nausea: No Vomiting: No Pain Intensity: 0 Hydration Status: adequate Mental Status/LOC: patient returned to baseline Post-Anesthesia Complications: none Follow-up care needed: N/A Nelly Granados M.D. Jul 16, 2018 07:15
--- NOTE | 2018-07-16 07:21 | Orthopedic Progress Note ---
Orthopedic - Progress Note Subjective Symptoms: c/o post-op knee pain Additional Comments Patient had a hard time urinating after d/c carvajal. Dr. Molina urology evaluated the patient and carvajal replaced. Recommended carvajal stay in due to bladder neck contracture from previous TURP. Objective Vital Signs Last 24 Hour Vital Signs Date Time Temp Pulse Resp B/P (MAP) Pulse Ox O2 Delivery O2 Flow Rate FiO2 07/16/18 07:14 209.7 80 12 100 07/16/18 04:32 98.6 82 19 105/60 (75) 98 98.6 07/16/18 00:17 99.1 98 20 134/58 (83) 96 99.1 07/15/18 23:18 Room Air 07/15/18 20:00 99.1 78 19 108/57 (74) 97 99.1 07/15/18 18:30 98.8 98.8 07/15/18 17:34 101.3 07/15/18 17:30 101.3 101.3 07/15/18 16:37 100.1 07/15/18 16:17 Room Air 07/15/18 16:00 100.1 87 18 116/65 (82) 98 100.1 07/15/18 14:35 99.4 07/15/18 14:05 99.4 07/15/18 12:32 99.4 61 20 116/65 (82) 98 99.4 07/15/18 10:44 207.7 68 20 98 07/15/18 09:00 Room Air 07/15/18 08:52 99.5 07/15/18 08:50 99.5 07/15/18 08:00 99.5 67 20 119/64 (82) 96 99.5 I&O Intake and Output 07/15/18 07/16/18 19:00 07:00 Intake Total 1490 ml 55 ml Output Total 2425 ml 0 ml Balance -935 ml 55 ml Intake Oral 590 ml IV Total 900 ml 55 ml Output Urine Total 2425 ml 0 ml Wound: clean Drains: none Neuro Status: normal Assessment Post-op Diagnosis s/p TKA with urinary retention, evaluated by Dr. Molina Plan Plan: PT, pain management, continue antibiotics, discharge plan Additional Comments Continue Abx so long as patient has carvajal in place Carvajal management per dr. Molina and Dr. Coombs Continue PT Ok to D/C tomorrow from ortho standpoint. If D/C with [facility]hat, then requires po x Steve Colorado MD Jul 16, 2018 07:21
[2018-07-16] MEDS: celeBREX 200mg Cap **SURGERY PATIENTS ONLY ORAL SCH (08:42)
[2018-07-16] MEDS: Docusate 100mg cap ORAL SCH ×3 (08:42→17:15)
[2018-07-16] MEDS: oxyCONTIN 20mg tab ORAL SCH ×2 (08:43→21:02)
--- NOTE | 2018-07-16 10:01 | General Progress Note ---
Assessment/Plan Status Narrative status post total jkneee arthroplasty post op heamturia post removing jose has historyof bph s/p taken to or to [facility] carvajal Assessment/Plan antibioti c since has had work on his carvajal adn has a new joint pt ot dvt prophyalxios dc palning. Subjective Date patient seen: Jul 16, 2018 Time patient seen: 09:59 Allergies: Coded Allergies: CEPHALEXIN (Verified Allergy, Unknown, 07/16/18) Subjective folwy wa sremved adn he had bleeding and retentino urology saw patient and was subsequently taken to the or Objective Last 24 Hour Vital Signs Date Time Temp Pulse Resp B/P (MAP) Pulse Ox O2 Delivery O2 Flow Rate FiO2 07/16/18 09:00 Room Air 07/16/18 08:20 97.5 86 20 113/65 (81) 100 97.5 07/16/18 07:53 98 77 15 119/57 100 Nasal Cannula 3 98.0 07/16/18 07:45 77 14 127/60 100 Nasal Cannula 3 07/16/18 07:40 209.7 12 18 100 07/16/18 07:35 75 13 112/58 100 Nasal Cannula 3 07/16/18 07:25 80 15 112/78 100 Nasal Cannula 3 07/16/18 07:15 81 13 115/63 100 Simple Mask 6 07/16/18 07:14 209.7 80 12 100 07/16/18 07:10 81 11 113/68 100 Simple Mask 6 07/16/18 07:05 98.7 80 12 123/65 100 Simple Mask 6 98.7 07/16/18 04:32 98.6 82 19 105/60 (75) 98 98.6 07/16/18 00:17 99.1 98 20 134/58 (83) 96 99.1 07/15/18 23:18 Room Air 07/15/18 20:00 99.1 78 19 108/57 (74) 97 99.1 07/15/18 18:30 98.8 98.8 07/15/18 17:34 101.3 07/15/18 17:30 101.3 101.3 07/15/18 16:37 100.1 07/15/18 16:17 Room Air 07/15/18 16:00 100.1 87 18 116/65 (82) 98 100.1 07/15/18 14:35 99.4 07/15/18 14:05 99.4 07/15/18 12:32 99.4 61 20 116/65 (82) 98 99.4 07/15/18 10:44 207.7 68 20 98 Intake and Output 07/15/18 07/16/18 19:00 07:00 Intake Total 1490 ml 55 ml Output Total 2425 ml 0 ml Balance -935 ml 55 ml Intake Oral 590 ml IV Total 900 ml 55 ml Output Urine Total 2425 ml 0 ml Laboratory Tests 07/15/18 22:02: White Blood Count 12.2H, Red Blood Count 3.58L, Hemoglobin 11.6L, Hematocrit 34.0L, Mean Corpuscular Volume 95, Mean Corpuscular Hemoglobin 32.3H, Mean Corpuscular Hemoglobin Concent 34.0, Red Cell Distribution Width 11.5L, Platelet Count 165, Mean Platelet Volume 6.6, Neutrophils (%) (Auto) 81.3H, Lymphocytes (%) (Auto) 8.1L, Monocytes (%) (Auto) 9.7, Eosinophils (%) (Auto) 0.1, Basophils (%) (Auto) 0.8, Prothrombin Time 10.8, Prothromb Time International Ratio 1.0, Activated Partial Thromboplast Time 34H, Sodium Level 140, Potassium Level 3.6, Chloride Level 106, Carbon Dioxide Level 25, Anion Gap 9, Blood Urea Nitrogen 10, Creatinine 0.9, Estimat Glomerular Filtration Rate > 60, Glucose Level 153H, Calcium Level 8.3L, Total Bilirubin 0.5, Aspartate Amino Transf (AST/SGOT) 21, Alanine Aminotransferase (ALT/SGPT) 26, Alkaline Phosphatase 103, Total Protein 6.1L, Albumin 3.0L, Globulin 3.1, Albumin/Globulin Ratio 1.0 Height (Feet): 5 Height (Inches): 8.50 Weight (Pounds): 236 General Appearance: WD/WN Neck: non-tender Cardiovascular: normal rate, regular rhythm, no JVD Respiratory/Chest: lungs clear Abdomen: non tender, soft Extremities: other - no clubbing Ta Coombs MD Jul 16, 2018 10:01
[2018-07-16 13:01] LABS: APPEARANCE,URINE TURBID; BILIRUBIN, URINE NEGATIVE (NEGATIVE); GLUCOSE, URINE (UA) NEGATIVE (NEGATIVE); KETONES,URINE NEGATIVE (NEGATIVE); LEUKOCYTE ESTERASE ,URINE 2+ (NEGATIVE); NITRITE,URINE POSITIVE (NEGATIVE); PH,URINE 7 (4.5-8.0); PROTEIN,URINE 3+ (NEGATIVE); UROBILINOGEN,URINE NORMAL MG/DL (0.0-1.0)
[2018-07-16 13:07] LABS: COLOR,URINE YELLOW
[2018-07-16] MEDS: Norco 5mg/325mg tab ORAL PRN (13:53)
--- NOTE | 2018-07-16 15:38 | Diagnostic Imaging Report ---
Indication: Pain Technique: XRAY Chest 1v Comparison: None Findings: Heart size and mediastinal contours are within normal limits for AP technique. There is minimal linear atelectasis or scarring in the left lower lung. Otherwise There is no focal consolidation, pneumothorax or pleural effusion. There are degenerative changes in the spine. Osseous structures demonstrate no acute abnormality. Impression: No radiographic evidence of acute cardiopulmonary disease. Middle linear scarring or atelectasis in the left lower lung.
[2018-07-16] MEDS: Morphine Sulfate 4mg/ml Inj (IV USE ONLY) IVP PRN (17:15)
--- NOTE | 2018-07-16 19:30 | Operative Note - Dictated ---
DATE OF OPERATION: 07/16/2018 PREOPERATIVE DIAGNOSIS: Urinary retention with difficult catheterization and hematuria. POSTOPERATIVE DIAGNOSIS: Urinary retention with difficult catheterization, hematuria, and bladder neck contracture and stricture. OPERATING SURGEON: Caleb Molina M.D. ANESTHESIOLOGIST: Dr. Granados. ANESTHESIA: General. INDICATION FOR PROCEDURE: This is a pleasant 68-year-old male. He is 2 days status post left knee arthroplasty. Apparently, he had a Giang indwelling, which was removed yesterday. There was significant bleeding noted after removal of the Giang. Overall, the patient was not able to urinate and I instructed the nurse to place a Giang back and they were not able to. I did evaluate the patient on an urgent basis and we were not able to insert a Giang. Apparently, the patient has a history of transurethral resection of prostate that was done a few years ago and that he may have some stricture or bladder neck contracture. Again, I did evaluate him at the bedside last night. Various different types of catheters were attempted including coude catheters. I also attempted passing a , which would not go through and the patient was having bladder discomfort and distention and as such, a decision was made to bring him to the operating room on an urgent basis to place a Giang catheter and to decompresses the bladder. I had a long discussion with the patient including possible risks and complications of bleeding, infection, anesthesia, damage to the urethra, incontinence, etc. I did tell him that if I am not able to get a catheter into the urethra, he may need to have a suprapubic tube placed as a last resort. All of his questions were answered. I did speak with Dr. Ta Coombs, the primary physician, as well as Dr. Parker and got okay to place the patient in lithotomy for the procedure. All questions were answered. No guarantees were given or implied. Consent was obtained. FINDINGS: The patient had a stricture and a pinpoint contracture of the bladder neck, presumably secondary to his previous transurethral resection of prostate. This was incised and dilated and a Giang was placed. PROCEDURE IN DETAIL: Informed consent was obtained from the patient. The patient was brought to the operative room and then placed in the supine position. Successful general anesthesia was induced. The patient was then placed in a modified dorsal lithotomy position and his genital area was then prepped and draped in the usual sterile fashion. Care was taken to support the left leg well and not to bend it too much. The patient was on preoperative intravenous antibiotics. A time-out was performed. At this point, the distal urethra was gently dilated and cystoscopy was then performed. The distal urethra was without lesions. However, he did have bands along the urethra and the prostate appeared to be resected and irregular. He had what appeared to be a small opening into the bladder, which I believe is a bladder neck contracture. I would estimate that the opening to be about may be 8 to maximum of 10-[place]. It is rather dense. There were small clots from the previous catheter attempt. At this point, I then passed an angled Glidewire through this small opening into the bladder and the wire was left in place. The opening was then sequentially dilated with Dave sounds over the wire. I then inserted the urethrotome and the bladder neck contracture was incised at 5 and 7 o'clock position as well as the bands from urethra. A wide open channel was obtained. There was minimal bleeding. I passed a 22-[place] Rincon-tip catheter over the wire into the bladder and was in good position with good return of yellowish urine. The balloon was inflated and the catheter irrigated well. It was left to gravity drainage of mild traction. The patient was awakened and was taken to recovery room in stable condition. Blood loss is minimal. No complication. Caleb Molina M.D. DR: ALESSIA JOB#: [id number] CC: Ta Coombs M.D.; Fax#: [phone] CHERRY PARKER M.D. ; FAX#: [phone]
[2018-07-16] MEDS: Atorvastatin 20mg tab ORAL SCH (21:01)
[2018-07-17] VITALS: BP 121/69
[2018-07-17 04:50] VITALS: BP 127/76
[2018-07-17] MEDS: Norco 5mg/325mg tab ORAL PRN ×2 (05:40→10:36)
[2018-07-17] MEDS: ceFAZolin sod 1 GM in NS 55 ML IVP SCH ×2 (05:40→14:33)
[2018-07-17 07:24] LABS: BASOPHILS % (AUTO) 0.5 % (0.0-2.0); EOSINOPHILS % (AUTO) 2.1 % (0.0-3.0); HEMATOCRIT 29.8 % (42.0-52.0); HEMOGLOBIN 10.1 G/DL (14.2-18.0); LYMPHOCYTES % (AUTO) 8.6 % (20.0-45.0); MEAN CORPUSCULAR VOLUME 94 FL (80-99); MONOCYTES % (AUTO) 8.6 % (1.0-10.0); NEUTROPHILS % (AUTO) 80.1 % (45.0-75.0); PLATELET COUNT 133 K/UL (150-450); RED BLOOD COUNT 3.18 M/UL (4.70-6.10); RED CELL DISTRIBUTION WIDTH 11.6 % (11.6-14.8); WHITE BLOOD COUNT 8.9 K/UL (4.8-10.8)
[2018-07-17 08:00] VITALS: BP 117/58
--- NOTE | 2018-07-17 08:02 | Orthopedic Progress Note ---
Orthopedic - Progress Note Subjective Symptoms: improved Objective Vital Signs Laboratory Tests Test 07/16/18 12:20 07/17/18 06:40 Urine Color Yellow Urine Appearance Turbid Urine pH 7 (4.5-8.0) Urine Specific [place] 1.010 (1.005-1.035) Urine Protein 3+ (NEGATIVE) H Urine Glucose (UA) Negative (NEGATIVE) Urine Ketones Negative (NEGATIVE) Urine Blood 5+ (NEGATIVE) H Urine Nitrite Positive (NEGATIVE) H Urine Bilirubin Negative (NEGATIVE) Urine Urobilinogen Normal MG/DL (0.0-1.0) Urine Leukocyte Esterase 2+ (NEGATIVE) H Urine RBC Tntc /HPF (0 - 0) H Urine WBC 10-15 /HPF (0 - 0) H Urine Squamous Epithelial Cells Moderate /LPF (NONE/OCC) H Urine Bacteria Moderate /HPF (NONE) H White Blood Count 8.9 K/UL (4.8-10.8) Red Blood Count 3.18 M/UL (4.70-6.10) L Hemoglobin 10.1 G/DL (14.2-18.0) L Hematocrit 29.8 % (42.0-52.0) L Mean Corpuscular Volume 94 FL (80-99) Mean Corpuscular Hemoglobin 31.8 PG (27.0-31.0) H Mean Corpuscular Hemoglobin Concent 34.0 G/DL (32.0-36.0) Red Cell Distribution Width 11.6 % (11.6-14.8) Platelet Count 133 K/UL (150-450) L Mean Platelet Volume 7.6 FL (6.5-10.1) Neutrophils (%) (Auto) 80.1 % (45.0-75.0) H Lymphocytes (%) (Auto) 8.6 % (20.0-45.0) L Monocytes (%) (Auto) 8.6 % (1.0-10.0) Eosinophils (%) (Auto) 2.1 % (0.0-3.0) Basophils (%) (Auto) 0.5 % (0.0-2.0) Last 24 Hour Vital Signs Date Time Temp Pulse Resp B/P (MAP) Pulse Ox O2 Delivery O2 Flow Rate FiO2 07/17/18 04:50 100.6 84 19 127/76 (93) 98 100.6 07/17/18 00:00 99.0 90 19 121/69 (86) 100 99.0 07/16/18 21:00 Room Air 07/16/18 21:00 99.0 98 19 98/60 (73) 100 99.0 07/16/18 16:00 99.7 86 19 115/64 (81) 100 99.7 07/16/18 12:00 97.8 78 20 109/62 (78) 99 97.8 07/16/18 09:00 Room Air 07/16/18 08:20 97.5 86 20 113/65 (81) 100 97.5 I&O Intake and Output 07/16/18 07/17/18 19:00 07:00 Intake Total 1730 ml Output Total 610 ml 2500 ml Balance 1120 ml -2500 ml Intake Oral 625 ml IV Total 1105 ml Output Urine Total 600 ml 2500 ml Estimated Blood Loss 10 ml # Voids 1 Wound: clean, dry, intact Drains: none Neuro Status: normal Vascular Status: normal Assessment Post-op Diagnosis POD 3 Procedure Performed left tka Plan Plan: discharge plan - to rehab today with wei on PO abx. to f/u with Dr. Grimaldo next week in his office. f/u Dr. [place] 10 days Kiesha Choe Jul 17, 2018 08:02
--- NOTE | 2018-07-17 08:05 | Discharge Summary ---
Discharge Summary Hospital Course Date of Admission Jul 14, 2018 at 06:29 Date of Discharge 07/17/18 Admitting Diagnosis left knee arthritis HPI Han José is a 68 year old male who was admitted on Jul 14, 2018 at 06:29 for Traumatic Arthropathy,Left Knee Consultations jake and bamshad Procedures left tka. carvajal placement in OR Hospital Course required urology consult and eval for urinary retention after removal of carvajal. hx of TURP with bladder strictures. pt will be d/c'd with carvajal and outpt urology follow up for ongoing management Discharge Condition Upon Discharge: improving, stable Discharge Disposition Patient was discharged to SNF with carvajal in place and outpt appt for urology and Ortho Kiesha Choe Jul 17, 2018 08:05
[2018-07-17] MEDS: oxyCONTIN 20mg tab ORAL SCH (08:10)
[2018-07-17] MEDS: celeBREX 200mg Cap **SURGERY PATIENTS ONLY ORAL SCH (08:10)
[2018-07-17] MEDS: Docusate 100mg cap ORAL SCH ×2 (08:11→12:52)
--- NOTE | 2018-07-17 10:10 | Urology Progress Note ---
Assessment/Plan Assessment/Plan urinary retention BPH probable neurogenic bladder hematuria BNC/urethral stx POD # 1, incision/dilation of stx, carvajal keep carvajal indwelling at least 5 days abx prophylaxis carvajal hand irrigated and do PRN outpt f/u for voiding trial d/w Dr. Coombs Subjective Allergies: Coded Allergies: CEPHALEXIN (Verified Allergy, Unknown, 07/16/18) Subjective all noted, feel fair, carvajal draining ok Objective Last 24 Hour Vital Signs Date Time Temp Pulse Resp B/P (MAP) Pulse Ox O2 Delivery O2 Flow Rate FiO2 07/17/18 09:09 100.5 07/17/18 08:10 100.5 07/17/18 08:00 100.5 88 18 117/58 (77) 99 100.5 07/17/18 04:50 100.6 84 19 127/76 (93) 98 100.6 07/17/18 00:00 99.0 90 19 121/69 (86) 100 99.0 07/16/18 21:00 Room Air 07/16/18 21:00 99.0 98 19 98/60 (73) 100 99.0 07/16/18 16:00 99.7 86 19 115/64 (81) 100 99.7 07/16/18 12:00 97.8 78 20 109/62 (78) 99 97.8 Intake and Output 07/16/18 07/17/18 19:00 07:00 Intake Total 1730 ml Output Total 610 ml 2500 ml Balance 1120 ml -2500 ml Intake Oral 625 ml IV Total 1105 ml Output Urine Total 600 ml 2500 ml Estimated Blood Loss 10 ml # Voids 1 Microbiology Date/Time Source Procedure Growth Status 07/15/18 18:55 Blood Blood Culture - Preliminary NO GROWTH AFTER 24 HOURS Resulted 07/14/18 07:20 Nasal Nares MRSA Culture - Final NO METHICILLIN RESISTANT STAPH AUREUS... Complete 07/16/18 12:20 Urine,Clean Catch Urine Culture - Preliminary NO GROWTH Resulted Current Medications Medications (Trade) Dose Ordered Sig/Yuri Route PRN Reason Start Time Stop Time Status Last Admin Dose Admin Acetaminophen (Tylenol) 650 mg Q4H PRN ORAL temp>100.2 or headache 07/14/18 16:00 08/13/18 15:59 07/15/18 16:37 Acetaminophen/ Hydrocodone Bitart ([place] 5/325) 2 tab Q4H PRN ORAL pain scores 4-10 07/14/18 16:00 07/21/18 15:59 07/17/18 05:40 Acetaminophen/ Hydrocodone Bitart ([place] 7.5/325) 1 tab Q4H PRN ORAL Mild Pain (Pain Scale 1-3) 07/14/18 16:00 07/21/18 15:59 Atorvastatin Calcium (Lipitor) 40 mg BEDTIME ORAL 07/15/18 21:00 08/14/18 20:59 07/16/18 21:01 Cefazolin Sodium 1 gm/Sodium Chloride 55 ml @ 110 mls/hr Q8HR IVP 07/15/18 22:00 07/22/18 21:59 07/17/18 05:40 Celecoxib (CeleBREX) 200 mg DAILY ORAL 07/15/18 09:00 08/14/18 08:59 07/17/18 08:10 Docusate Sodium (Colace) 100 mg THREE TIMES A DAY ORAL 07/14/18 18:00 08/13/18 17:59 07/17/18 08:11 Ferrous Sulfate (Feosol) 325 mg THREE TIMES A DAY ORAL 07/14/18 18:00 08/13/18 17:59 07/17/18 08:09 Magnesium Hydroxide (Mom) 30 ml DAILY PRN ORAL Constipation 07/14/18 16:00 08/13/18 15:59 Morphine Sulfate (Morphine Sulfate) 1 mg Q4H PRN IVP Mild Pain (Pain Scale 1-3) 07/14/18 16:00 07/21/18 15:59 Morphine Sulfate (Morphine Sulfate) 2 mg Q4H PRN IVP Moderate Pain (Pain Scale 4-6) 07/14/18 16:00 07/21/18 15:59 07/16/18 10:09 Morphine Sulfate (Morphine Sulfate) 4 mg Q4H PRN IVP Severe Pain (Pain Scale 7-10) 07/14/18 16:00 07/21/18 15:59 07/16/18 17:15 Ondansetron HCl (Zofran) 4 mg Q6H PRN IVP Nausea & Vomiting 07/14/18 16:00 08/13/18 15:59 Oxycodone HCl (OxyCONTIN) 20 mg EVERY 12 HOURS ORAL 07/14/18 21:00 07/21/18 20:59 07/17/18 08:10 Temazepam (Restoril) 7.5 mg HSPRN PRN ORAL Insomnia 07/14/18 21:00 07/21/18 20:59 07/17/18 00:39 Terazosin HCl (Hytrin) 15 mg DAILY ORAL 07/15/18 18:45 08/14/18 18:44 07/17/18 08:09 Laboratory Tests 07/16/18 12:20: Urine Color Yellow, Urine Appearance Turbid, Urine pH 7, Urine Specific [place] 1.010, Urine Protein 3+H, Urine Glucose (UA) Negative, Urine Ketones Negative, Urine Blood 5+H, Urine Nitrite PositiveH, Urine Bilirubin Negative, Urine Urobilinogen Normal, Urine Leukocyte Esterase 2+H, Urine RBC TntcH, Urine WBC 10 -15H, Urine Squamous Epithelial Cells ModerateH, Urine Bacteria ModerateH 07/17/18 06:40: White Blood Count 8.9, Red Blood Count 3.18L, Hemoglobin 10.1L, Hematocrit 29.8L , Mean Corpuscular Volume 94, Mean Corpuscular Hemoglobin 31.8H, Mean Corpuscular Hemoglobin Concent 34.0, Red Cell Distribution Width 11.6, Platelet Count 133L, Mean Platelet Volume 7.6, Neutrophils (%) (Auto) 80.1H, Lymphocytes (%) (Auto) 8.6L, Monocytes (%) (Auto) 8.6, Eosinophils (%) (Auto) 2.1, Basophils (%) (Auto) 0.5 Height (Feet): 5 Height (Inches): 8.50 Weight (Pounds): 236 Objective exam stable, carvajal indwelling, slightly blood-tinged urine HAYLIE NGUYEN Jul 17, 2018 10:10
[2018-07-17 12:00] VITALS: BP 110/67
[2018-07-17] MEDS ORDERED: Sterile Water Irrig 1000ml IRRIG ONE (15:49)
[2018-07-17] MEDS ORDERED: Tubing IV Secondary IV ONE (15:49)
--- NOTE | 2018-07-19 08:13 | Discharge Summary ---
Discharge Summary Hospital Course Date of Admission Jul 14, 2018 at 06:29 Date of Discharge Jul 17, 2018 at 15:50 Admitting Diagnosis Left knee end stage arthritis Reason for Hospitalization: elective surgery HPI Han José is a 68 year old male who was admitted on Jul 14, 2018 at 06:29 for Traumatic Arthropathy,Left Knee Consultations dr Malvin Molina - urologist Procedures s/p 07/14/[address] Colorado Left total knee arthroplasty using Comfort system, size 5 Triathlon femur, size 6 Triathlon primary tibial base plate, 33 mm ultra cross-linked polyethylene patella, and 11 mm ultra cross-linked polyethylene insert. s/p 07/16/[address] Molina cystoscopy, urethrotomy Hospital Course see discharge summary by surgeon DISCHARGE DIAGNOSES: Left knee end-stage arthritis, medial compartment. s/p L TKA urinary retention BPH hematuria urethral stricture probably neurogenic bladder s/p cystoscopy, urethrotomy Discharge Medications Continued Medications: Atorvastatin Calcium* (Lipitor*) 40 Mg Tablet 40 MG ORAL DAILY, TAB (This prescription has been renewed) Terazosin HCl (Terazosin HCl) 5 Mg Capsule 5 MG PO TID, #7 CAP 0 Refills (This prescription has been renewed) Discharge Condition Upon Discharge: stable Discharge Disposition Patient was discharged to SNF/Subacute Facility(03) Discharge Instructions Discharge Instructions Special Instructions I have been assigned to complete a D/C Summary on this account. I was not involved in the patient management Aylin Brenner NP Jul 19, 2018 08:13
== END 2018-07-17 15:50 | DRG 470 ==
LOC: SDSOVERFLO 06:29 → 3E 15:35
PROC: 0SRD069 Replacement of Left Knee Joint with Oxidized Zirconium on Polyethylene Synthetic Substitute, Cemented, Open Approach (ICD-10-PCS; principal; 2018-07-14 08:30)
PROC: 0TQ Urinary System, Repair (ICD-10-PCS; 2018-07-16)
DX: M17.12 Unilateral primary osteoarthritis, left knee (principal); N13.8 Other obstructive and reflux uropathy; N40.1 Benign prostatic hyperplasia with lower urinary tract symptoms; R33.8 Other retention of urine; R31.9 Hematuria, unspecified; E78.5 Hyperlipidemia, unspecified; N35.8 Other urethral stricture; N31.9 Neuromuscular dysfunction of bladder, unspecified
CPT/HCPCS: 36415; 71045; 80053; 81003; 85025; 85610; 85730; 86850; 86900; 86901; 86920; 87040; 87081; 87086; 93970; 94003; 94150; J2250; J2405

== ENCOUNTER 2018-09-15 08:45 | Inpatient (IN) | payer OTHER ==
[~2018-09-15] VITALS: Ht 174 cm; Wt 111.6 kg
[2018-09-15] VITALS (14 sets, daily range): BP systolic 103–126; BP diastolic 53–87
[~2018-09-15 08:45] MED LIST changes: +NORCO 10-325 T1 EACH ORAL; +ceFAZolin 1gm in D5W 55ml IVP ONE; -ceFAZolin 1gm in D5W 55ml IVPB ONE
[2018-09-15] MEDS ORDERED: NORCO 5-325 TA1 EACH ORAL (09:45)
[2018-09-15] MEDS ORDERED: AMPICILLIN PO (09:45)
[2018-09-15] MEDS ORDERED: AMPICILLIN SODIU1 G1 IV (09:45)
[2018-09-15] MEDS ORDERED: Bupivacaine 0.5% Inj 30 ml vial INJ ONE ×2 (10:10→10:24)
[2018-09-15] MEDS ORDERED: Bacitracin 50000 Units Vial ONE (10:10)
[2018-09-15] MEDS ORDERED: NeoSporin Gu Irrig 1ml Amp IRRIG ONE (10:10)
[2018-09-15] MEDS ORDERED: Morphine Sulfate PF 0 ML ONE (10:10)
[2018-09-15] MEDS ORDERED: celeBREX 200mg Cap **SURGERY PATIENTS ONLY ORAL ONE (10:17)
[2018-09-15] MEDS ORDERED: oxyCONTIN 20mg tab ORAL ONE (10:17)
[2018-09-15] MEDS ORDERED: cloNIDine 1000mcg/10ml inj ONE (10:24)
[2018-09-15] MEDS ORDERED: Lidocaine 1% MPF 10mg/ml 5ml ONE ×2 (10:30→10:31)
[2018-09-15] MEDS ORDERED: LR 1000ml ONE (10:30)
[2018-09-15] MEDS ORDERED: Propofol 200mg/20ml IV ONE (10:30)
[2018-09-15] MEDS ORDERED: Sterile Water Irrig 1000ml IRRIG ONE (10:30)
[2018-09-15] MEDS ORDERED: Dexamethasone 4mg/ml vial ONE (10:31)
[2018-09-15] MEDS ORDERED: LR 1000ml 1,000 ML IVLG SCH (10:37)
--- NOTE | 2018-09-15 10:42 | Anethesia Preoperative Eval ---
Anesthesia Pre-op PMH/ROS General Date of Evaluation: Sep 15, 2018 Time of Evaluation: 10:31 Anesthesiologist: Caden ASA Score: ASA 3 Mallampati Score Class I : Soft palate, uvula, fauces, pillars visible Class II: Soft palate, uvula, fauces visible Class III: Soft palate, base of uvula visible Class IV: Only hard plate visible Mallampati Classification: Class III Surgeon: Miroslava Diagnosis: L Knee Pain Surgical Procedure: L Knee Patellar Repair Anesthesia History: none Family History: no anesthesia problems Allergies: Coded Allergies: CEPHALEXIN (Verified Allergy, Mild, 09/15/18) SKIN RASH Medications: see eMAR Patient NPO?: Yes NPO Date: Sep 14, 2018 NPO Time: 2358 Past Medical History Cardiovascular: Reports: HTN, arrhythmia Gastrointestinal/Genitourinary: Reports: other - BPH, Prostate CA Hematology/Immune: Reports: anemia, other - Prostate CA PSxH Narrative: Prostatectomy, Lumbar Fusion, Bladder SX, L TKR Anesthesia Pre-op Phys. Exam Physician Exam Last Vital Signs Date Time Temp Pulse Resp B/P (MAP) Pulse Ox O2 Delivery O2 Flow Rate FiO2 09/15/18 09:39 97.8 56 20 112/59 (76) 99 97.8 09/15/18 09:35 Room Air Constitutional: NAD Neurologic: CN 2-12 intact Cardiovascular: RRR Respiratory: CTA Gastrointestinal: S/NT/ND Airway Exam Mallampati Score: Class III MO: full ROM: limited Teeth: missing, intact Anesthesia Pre-op A/P Risk Assessment & Plan Assessment: ASA 3 Plan: GA, Spinal Status Change Before Surgery: No Pre-Antibiotics Dru Grams Ancef IV Given Within 1 Hr of Incision: Yes Time Given: 10:56 Issa Negrete MD Sep 15, 2018 10:42
[2018-09-15] MEDS ORDERED: Ketorolac 30mg Inj IV PRN ×2 (10:45)
[2018-09-15] MEDS ORDERED: Midazolam 2mg/2ml Inj IVP PRN (10:45)
[2018-09-15] MEDS ORDERED: Metoclopramide 10mg/2ml Inj IVP PRN (10:45)
[2018-09-15] MEDS ORDERED: HYDROcodone/Acetamin 7.5/325 tab ORAL PRN (10:45)
[2018-09-15] MEDS ORDERED: Norco 5mg/325mg tab ORAL PRN ×2 (10:45→13:32)
[2018-09-15] MEDS ORDERED: fentaNYL 100 mcg/2 mL IV PRN (10:45)
[2018-09-15] MEDS ORDERED: DiphenhydrAMINE 50mg/ml Inj IVP PRN (10:45)
[2018-09-15] MEDS ORDERED: LORazepam Inj 2mg/ml 1ml IV PRN (10:45)
[2018-09-15] MEDS ORDERED: Meperidine 50mg/ml Inj(FOR RIGORS ONLY) IVP PRN (10:45)
[2018-09-15] MEDS ORDERED: oxyCODONE HCL/Acetaminophen 5/325mg ORAL PRN (10:45)
[2018-09-15] MEDS ORDERED: Atropine Sulfate 0.4mg/ml inj IVP PRN (10:45)
[2018-09-15] MEDS ORDERED: Hydromorphone 0.5mg/0.5ml inj IVP PRN (10:45)
--- NOTE | 2018-09-15 10:56 | Pre-Procedure Note/Attestation ---
Pre-Procedure Note/Attestation Complete Prior to Procedure Planned Procedure: left Procedure Narrative: left quad tendon repair Indications for Procedure Pre-Operative Diagnosis: left quad tendon rupture Attestation I attest that I discussed the nature of the procedure; its benefits; risks and complications; and alternatives (and the risks and benefits of such alternatives ), prior to the procedure, with the patient (or the patient's legal paper sales representative). I attest that, if there was a reasonable possibility of needing a blood transfusion, the patient (or the patient's legal paper sales representative) was given the [facility] standardized written summary, pursuant to the Rhett Kari Blood Safety Act ([place] Health and Safety Code # 1645, as amended). I attest that I re-evaluated the patient just prior to the surgery and that there has been no change in the patient's H&P, except as documented below: Steve Colorado MD Sep 15, 2018 10:56
[2018-09-15] MEDS ORDERED: Hydromorphone 0.5mg/0.5ml inj SUBQ PRN (11:00)
[2018-09-15] MEDS ORDERED: HYDROmorphone 1mg/ml Carpuject SUBQ PRN (11:00)
[2018-09-15] MEDS ORDERED: NS Irrig 1000ml IRRIG ONE ×2 (11:00→11:30)
[2018-09-15] MEDS ORDERED: ePHEDrine 50mg/ml Inj ONE (11:09)
--- NOTE | 2018-09-15 11:31 | Immediate Post-Op Evaluation ---
Immediate Post-Op Evalulation Immediate Post-Op Evalulation Procedure: L Knee Patellar Repair Date of Evaluation: Sep 15, 2018 Time of Evaluation: 12:45 IV Fluids: 600 LR Blood Products: 0 Estimated Blood Loss: 10 Urinary Output: 75 Blood Pressure Systolic: 103 Blood Pressure Diastolic: 63 Pulse Rate: 61 Respiratory Rate: 16 O2 Sat by Pulse Oximetry: 99 Temperature (Fahrenheit): 97.6 Pain Score (1-10): 1 Nausea: No Vomiting: No Complications 0 Patient Status: awake, reacts, patent, extubated, none Hydration Status: adequate Dru Grams Ancef IV Given Within 1 Hr of Incision: Yes Time Given: 10:56 Issa Negrete MD Sep 15, 2018 11:31
--- NOTE | 2018-09-15 12:21 | Brief Operative Note ---
Immediate Post Operative Note Operative Note Chief Complaint: leftknee injury Pre-op Diagnosis: left quad tendon rupture Procedure: left quad tendon repair Post-op Diagnosis: same as pre-op Findings: consistent w/pre-op dx studies Surgeon: md vianca [employer] Specialist: juan m cantor Anesthesiologist: mckay. delgadillo Anesthesia: general Specimen: none Complications: none Condition: stable Fluids: no Estimated Blood Loss: minimal Drains: none Packing: no Implant(s) used?: No Kiesha Cantor Sep 15, 2018 12:21 Steve Colorado MD Sep 22, 2018 07:21
--- NOTE | 2018-09-15 13:55 | General Progress Note ---
Assessment/Plan Status Narrative s/p knee surgery doign well monitor travis morrisonotryof bph adn urinary retention proscar and rflomax. Subjective Date patient seen: Sep 15, 2018 Time patient seen: 13:54 Constitutional: Reports: no symptoms HEENT: Reports: no symptoms Cardiovascular: Reports: no symptoms Respiratory: Reports: no symptoms Gastrointestinal/Abdominal: Reports: no symptoms Allergies: Coded Allergies: CEPHALEXIN (Verified Allergy, Mild, 09/15/18) SKIN RASH Objective Last 24 Hour Vital Signs Date Time Temp Pulse Resp B/P (MAP) Pulse Ox O2 Delivery O2 Flow Rate FiO2 09/15/18 13:30 97.6 57 20 126/65 98 Room Air 97.6 09/15/18 13:20 60 19 117/63 98 Room Air 09/15/18 13:10 61 18 111/58 98 Room Air 09/15/18 13:05 63 19 113/62 95 Room Air 09/15/18 12:55 60 20 115/63 98 Room Air 09/15/18 12:45 62 18 122/70 96 Room Air 09/15/18 12:42 62 18 123/63 98 Simple Mask 6 09/15/18 12:37 61 17 123/63 98 Simple Mask 6 09/15/18 12:33 207.7 61 16 99 09/15/18 12:32 97.6 80 25 103/63 98 Simple Mask 6 97.6 09/15/18 09:39 97.8 56 20 112/59 (76) 99 97.8 09/15/18 09:35 Room Air Height (Feet): 5 Height (Inches): 8.50 Weight (Pounds): 224 General Appearance: WD/WN Neck: other - no jkvd Cardiovascular: normal rate, regular rhythm Respiratory/Chest: lungs clear Abdomen: non tender, soft Ta Coombs MD Sep 15, 2018 13:55
--- NOTE | 2018-09-15 14:56 | Diagnostic Imaging Report ---
Indication: Postop COMPARISON: 07/14/2018 2 views of the left knee were obtained. Findings: There is soft tissue air and swelling anterior part of the knee. The superior aspect of the patella appears irregular and may have been biopsied or resected partially. Please correlate with the surgical report. Total knee prosthesis again noted unchanged from the last study. IMPRESSION: Postoperative left knee surgery.
[2018-09-15] MEDS: D5 1/2NS 1,000 ML IV SCH (16:24)
[2018-09-15] MEDS: Clindamycin 600mg 50 ML IV SCH ×2 (16:24→21:22)
[2018-09-15] MEDS: Docusate 100mg cap ORAL SCH (17:34)
[2018-09-15] MEDS ORDERED: Atorvastatin 20mg tab ORAL SCH (21:00)
[2018-09-15] MEDS ORDERED: Tamsulosin 0.4mg cap ORAL SCH (21:00)
[2018-09-15] MEDS: Enoxaparin 30mg Inj SUBQ SCH (21:00)
[2018-09-15] MEDS: oxyCONTIN 20mg tab ORAL SCH (21:23)
--- NOTE | 2018-09-15 22:45 | Operative Note - Dictated ---
DATE OF OPERATION: 09/15/2018 PREOPERATIVE DIAGNOSES: 1. Left knee status post total knee arthroplasty with traumatic quadriceps rupture after a fall. 2. Possible patella polyethylene loosening. POSTOPERATIVE DIAGNOSES: 1. Left knee traumatic quadriceps tendon rupture after a fall. 2. No evidence of polyethylene loosening and polyethylene was well fixed onto the remaining patella. PROCEDURE: 1. Left knee open quadriceps tendon repair using two #2 FiberWire sutures. 2. Left knee medial and lateral retinacular repair using #2 FiberWire suture in a [id number] configuration. SURGEON: Steve Colorado M.D. CARPET CLEANER: Kiesha Choe PA-C. ANESTHESIOLOGIST: Issa Negrete M.D. ANESTHESIA: Spinal anesthesia. ESTIMATED BLOOD LOSS: Less than 50 mL. TOURNIQUET TIME: One hour. COMPLICATIONS: None. BRIEF HISTORY: The patient is a pleasant 68-year-old gentleman who sustained an injury to his left knee after a total knee arthroplasty. Approximately 7 weeks after his total knee arthroplasty, he was doing extremely well. He was walking, however, he lost his footing and fell down landing directly on his left knee. He had immediate onset of pain about the left knee. He was unable to extend his knee. He presented to the office and x-ray showed an avulsion fracture of the quadriceps. After full discussion of the risks and benefits of the surgery and complications associated it including infection, bleeding, neurovascular complication, possibility of continued pain, possibility of extension lack, possibility of stiffness, possibility of loss of flexion, possibility of limping despite surgical procedure, possibility of continued quad weakness, and other complications that may arise including infection, bleeding, neurovascular complication, possibility of need for revision surgery down the line, as well as DVT and PE, he opted for surgical treatment as described above. OPERATIVE PROCEDURE: The patient was brought to the operating table and was placed supine. All pressure points were well padded. Spinal anesthesia was induced. Giang was not placed in due to the fact that the patient had trouble with placement of Giang in the past. Preoperative antibiotics were given. Time-out was performed. The left knee was then prepped and draped in usual sterile fashion and exsanguinated when tourniquet was inflated to 275 mmHg. Standard anterior incision over the previous scar was taken. The previous scar was resected. The incision was taken through subcutaneous tissue. The quadriceps tendon was identified and distally, there was a complete rupture of the quadriceps tendon with tear of the medial and lateral retinaculum. There was some avulsion of the proximal end of the patella. The polyethylene could be visualized. The patella was inclined superiorly and the polyethylene could be seen. A [place] elevator was used to push the polyethylene. This polyethylene was well fixed. There was no dislodging of the polyethylene. At this point, it was chosen to leave the polyethylene and fix the quadriceps tendon through transosseous patellar tunnels. At this point, using two #2 FiberWire sutures, modified Krackow sutures were placed in the quadriceps tendon. At this point, three drill holes were placed strategically around the patella to avoid the pegs from the polyethylene. Once this was completed, the sutures were then passed through the transosseous holes. The transosseous holes were taken all the way down to the patella tendon to create as long as a tunnel as possible. Once this was completed, the sutures were tied with the knee in full extension. This reapproximated the quadriceps perfectly. Once this was complete, using [id number] configuration and #2 FiberWire suture, the medial and lateral retinaculum was completely repaired. This provided excellent extensor repair. At this point, the additional stitches were placed on the soft tissue over the patella as well as over the quadriceps to bring those together further. This was placed using [id number] configuration. At this point, the wounds were thoroughly irrigated. The knee was placed through range of motion. There was 0-45 degrees of flexion without any tension on the repair site. At this point, wounds were thoroughly irrigated using copious amount of fluid. The subcutaneous tissue was closed using 2-0 Vicryl suture. Skin was closed using 3-0 Monocryl suture and Steri-Strips were applied. The patient tolerated the procedure well without any complication and was placed in a knee immobilizer and he will remain in knee immobilizer for 6 weeks. He was transported to recovery room in stable condition. Prior to his exit, in-and-out cath was performed sterilely and urine was obtained. Steve Colorado M.D. DR: Sandra JOB#: [id number] CC:
[2018-09-16 00:34] VITALS: BP 119/58
--- NOTE | 2018-09-16 01:45 | Consultation ---
DATE OF CONSULTATION: 09/15/2018 UROLOGY CONSULTATION CONSULTING PHYSICIAN: aCleb Molina M.D. REFERRING PHYSICIAN: Ta Coombs M.D. REASON FOR CONSULTATION: For evaluation of urinary retention. HISTORY OF PRESENT ILLNESS: This is a 68-year-old male. He is known to me from an evaluation about two months ago. The patient has history of knee surgery that he had two months ago. At that time, postoperatively, he had difficult catheterization and was noted to have a very severe bladder neck contracture, which required going to the operating room for incision of the contracture with dilation and placement of the Giang. He did have a Giang catheter for an extended period after which it was removed and apparently he was voiding fairly well. He now was admitted to the hospital for left quad tendon repair. He is currently on the floor. He was having some difficulty voiding with elevated residuals of about 700 mL at which time, Urology consultation was requested. Apparently, the patient was eventually able to void about 300 to 400 mL after which he is comfortable. PAST MEDICAL HISTORY: Significant for above. He has had previous TURP procedure. MEDICATIONS: Current medication list was reviewed. He is currently on Proscar, Lovenox, OxyContin, Flomax, Lipitor, Colace, [place], Dilaudid, and Restoril. ALLERGIES: Cephalexin. PHYSICAL EXAMINATION: GENERAL: This is a well-developed, well-nourished man, in no acute distress. VITAL SIGNS: Temperature is 98.3 and blood pressure 116/87. ABDOMEN: Feels soft, nondistended. LABORATORY DATA: His last hemoglobin was 10.1 back in June. There is no recent hemoglobin. His creatinine was 0.9 back in June and he did have UA back in June, which showed red cells, white cells, and protein. DIAGNOSTIC IMAGING STUDIES: The patient has not had any renal imaging studies. IMPRESSION: 1. Urinary retention. 2. Probable neurogenic bladder (atonic). 3. BPH history. 4. Bladder and neck contracture history, status post dilation and incision two months ago. 5. Hematuria history. PLAN AND DISCUSSION: I did evaluate the patient on an urgent basis. Again, he had a high post-void residual after which he was able to urinate and he is comfortable. I did offer to place a Giang catheter for him or at least attempt and he adamantly refuses a Giang. He does not want to have a catheter at this time. He states that he is comfortable and he wants to be watched. My impression is that this may be a chronic issue and may have chronically high residuals as he is completely comfortable with relatively high residual. At this time, I would recommend monitoring. He is to continue with Flomax and Proscar as ordered. I will also add Urecholine and go from there. At some point, he may need to have repeat cystoscopy to re-evaluate the bladder neck contracture. Thank you for this consultation. Caleb Molina M.D. DR: BOZENA JOB#: [id number] CC: Ta Coombs M.D.; Fax#: [phone] CHERRY PARKER M.D. ; FAX#: [phone]
[2018-09-16] MEDS: D5 1/2NS 1,000 ML IV SCH (03:02)
[2018-09-16] MEDS: Clindamycin 600mg 50 ML IV SCH ×2 (03:39→09:00)
[2018-09-16 04:00] VITALS: BP 115/61
[2018-09-16 04:44] VITALS: BP 115/61
[2018-09-16 06:38] LABS: BASOPHILS % (AUTO) 0.8 % (0.0-2.0); EOSINOPHILS % (AUTO) 2.5 % (0.0-3.0); HEMATOCRIT 34.2 % (42.0-52.0); HEMOGLOBIN 11.4 G/DL (14.2-18.0); LYMPHOCYTES % (AUTO) 18.8 % (20.0-45.0); MEAN CORPUSCULAR VOLUME 93 FL (80-99); MONOCYTES % (AUTO) 8.4 % (1.0-10.0); NEUTROPHILS % (AUTO) 69.5 % (45.0-75.0); PLATELET COUNT 219 K/UL (150-450); RED CELL DISTRIBUTION WIDTH 12.7 % (11.6-14.8); WHITE BLOOD COUNT 9.6 K/UL (4.8-10.8)
[2018-09-16 07:04] LABS: ANION GAP 8 mmol/L (5-15); BLOOD UREA NITROGEN 20 mg/dL (7-18); CALCIUM 8.5 MG/DL (8.5-10.1); CARBON DIOXIDE 28 MMOL/L (21-32); CHLORIDE 103 MMOL/L (98-107); CREATININE 0.8 MG/DL (0.55-1.30); POTASSIUM 3.7 MMOL/L (3.5-5.1); SODIUM 139 MMOL/L (136-145)
[2018-09-16 08:00] VITALS: BP 97/58
--- NOTE | 2018-09-16 08:06 | 48 Hour Post Anesthesia Eval ---
Post Anesthesia Evaluation Procedure: L Knee Patellar Repair Date of Evaluation: Sep 16, 2018 Time of Evaluation: 08:05 Blood Pressure Systolic: 118 0: 74 Pulse Rate: 72 Respiratory Rate: 20 Temperature (Fahrenheit): 97.6 O2 Sat by Pulse Oximetry: 98 Airway: patent Nausea: No Vomiting: No Pain Intensity: 3 Hydration Status: adequate Cardiopulmonary Status: stable Mental Status/LOC: patient returned to baseline Follow-up Care/Observations: n/a Post-Anesthesia Complications: none Follow-up care needed: N/A Joaquín Cid MD Sep 16, 2018 08:06
--- NOTE | 2018-09-16 08:39 | Orthopedic Progress Note ---
Orthopedic - Progress Note Subjective Symptoms: improved Additional Comments some urinary retention yesterday but much better now. urinating without issue Objective Laboratory Tests Test 09/16/18 06:05 White Blood Count 9.6 K/UL (4.8-10.8) Red Blood Count 3.70 M/UL (4.70-6.10) L Hemoglobin 11.4 G/DL (14.2-18.0) L Hematocrit 34.2 % (42.0-52.0) L Mean Corpuscular Volume 93 FL (80-99) Mean Corpuscular Hemoglobin 30.8 PG (27.0-31.0) Mean Corpuscular Hemoglobin Concent 33.2 G/DL (32.0-36.0) Red Cell Distribution Width 12.7 % (11.6-14.8) Platelet Count 219 K/UL (150-450) Mean Platelet Volume 6.4 FL (6.5-10.1) L Neutrophils (%) (Auto) 69.5 % (45.0-75.0) Lymphocytes (%) (Auto) 18.8 % (20.0-45.0) L Monocytes (%) (Auto) 8.4 % (1.0-10.0) Eosinophils (%) (Auto) 2.5 % (0.0-3.0) Basophils (%) (Auto) 0.8 % (0.0-2.0) Sodium Level 139 MMOL/L (136-145) Potassium Level 3.7 MMOL/L (3.5-5.1) Chloride Level 103 MMOL/L (98-107) Carbon Dioxide Level 28 MMOL/L (21-32) Anion Gap 8 mmol/L (5-15) Blood Urea Nitrogen 20 mg/dL (7-18) H Creatinine 0.8 MG/DL (0.55-1.30) Estimat Glomerular Filtration Rate > 60 mL/min (>60) Glucose Level 108 MG/DL (74-106) H Calcium Level 8.5 MG/DL (8.5-10.1) Last 24 Hour Vital Signs Date Time Temp Pulse Resp B/P (MAP) Pulse Ox O2 Delivery O2 Flow Rate FiO2 09/16/18 08:06 207.7 72 20 98 09/16/18 08:02 97.7 09/16/18 04:44 97.7 54 19 115/61 (79) 97 97.7 09/16/18 04:00 97.7 62 18 115/61 (79) 98 97.7 09/16/18 00:34 97.6 62 18 119/58 (78) 98 97.6 09/15/18 21:00 Room Air 09/15/18 20:36 97.2 66 19 114/53 (73) 98 97.2 09/15/18 17:35 98.3 09/15/18 15:15 98.3 61 20 116/87 (97) 98 98.3 09/15/18 14:15 98.0 54 19 112/85 (94) 96 98.0 09/15/18 13:45 98.4 61 20 109/65 (80) 96 98.4 09/15/18 13:45 Room Air 09/15/18 13:30 97.6 57 20 126/65 98 Room Air 97.6 09/15/18 13:20 60 19 117/63 98 Room Air 09/15/18 13:10 61 18 111/58 98 Room Air 09/15/18 13:05 63 19 113/62 95 Room Air 09/15/18 12:55 60 20 115/63 98 Room Air 09/15/18 12:45 62 18 122/70 96 Room Air 09/15/18 12:42 62 18 123/63 98 Simple Mask 6 09/15/18 12:37 61 17 123/63 98 Simple Mask 6 09/15/18 12:33 207.7 61 16 99 09/15/18 12:32 97.6 80 25 103/63 98 Simple Mask 6 97.6 09/15/18 09:39 97.8 56 20 112/59 (76) 99 97.8 09/15/18 09:35 Room Air Intake and Output 09/15/18 09/16/18 18:59 06:59 Intake Total 1600 ml 2175 ml Output Total 0 ml 1430 ml Balance 1600 ml 745 ml Intake Oral 700 ml 1200 ml IV Total 900 ml 975 ml Output Urine Total 1430 ml Estimated Blood Loss 0 ml # Voids 4 Laboratory Tests Test 09/16/18 06:05 White Blood Count 9.6 K/UL (4.8-10.8) Red Blood Count 3.70 M/UL (4.70-6.10) L Hemoglobin 11.4 G/DL (14.2-18.0) L Hematocrit 34.2 % (42.0-52.0) L Mean Corpuscular Volume 93 FL (80-99) Mean Corpuscular Hemoglobin 30.8 PG (27.0-31.0) Mean Corpuscular Hemoglobin Concent 33.2 G/DL (32.0-36.0) Red Cell Distribution Width 12.7 % (11.6-14.8) Platelet Count 219 K/UL (150-450) Mean Platelet Volume 6.4 FL (6.5-10.1) L Neutrophils (%) (Auto) 69.5 % (45.0-75.0) Lymphocytes (%) (Auto) 18.8 % (20.0-45.0) L Monocytes (%) (Auto) 8.4 % (1.0-10.0) Eosinophils (%) (Auto) 2.5 % (0.0-3.0) Basophils (%) (Auto) 0.8 % (0.0-2.0) Sodium Level 139 MMOL/L (136-145) Potassium Level 3.7 MMOL/L (3.5-5.1) Chloride Level 103 MMOL/L (98-107) Carbon Dioxide Level 28 MMOL/L (21-32) Anion Gap 8 mmol/L (5-15) Blood Urea Nitrogen 20 mg/dL (7-18) H Creatinine 0.8 MG/DL (0.55-1.30) Estimat Glomerular Filtration Rate > 60 mL/min (>60) Glucose Level 108 MG/DL (74-106) H Calcium Level 8.5 MG/DL (8.5-10.1) Wound: clean, dry, intact Drains: none Neuro Status: normal Vascular Status: normal Additional Comments xray reviewed Assessment Post-op Diagnosis POD 1 Procedure Performed left quad tendon repair Plan Plan: PT - WBAT, knee immobilizer on at all times. full extention x6 weeks, discharge to home - with home care. fu in office in 1 week Kiesha Choe Sep 16, 2018 08:38
--- NOTE | 2018-09-16 08:40 | Discharge Summary ---
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 probable neurogenic bladder (atonic). BPH history. bladder and neck contracture history, status post dilation and incision two months ago. hematuria history. Discharge Condition Upon Discharge: improving, stable Discharge Disposition Patient was discharged to home with services Kiesha Choe Sep 16, 2018 08:40 Aylin Brenner NP Sep 22, 2018 10:32
[2018-09-16] MEDS: Bethanechol 25mg Tab ORAL SCH ×2 (08:58→12:56)
[2018-09-16] MEDS: Docusate 100mg cap ORAL SCH ×2 (08:58→12:56)
[2018-09-16] MEDS: oxyCONTIN 20mg tab ORAL SCH (09:00)
[2018-09-16] MEDS ORDERED: celeBREX 200mg Cap **SURGERY PATIENTS ONLY ORAL SCH (09:00)
[2018-09-16] MEDS: Enoxaparin 30mg Inj SUBQ SCH (09:09)
[2018-09-16 09:15] VITALS: BP 104/46
--- NOTE | 2018-09-16 09:20 | Urology Progress Note ---
Assessment/Plan Assessment/Plan 1. Urinary retention. 2. Probable neurogenic bladder (atonic). 3. BPH history. 4. Bladder and neck contracture history, status post dilation and incision two months ago. 5. Hematuria history. monitor clinically voiding, pt does not want carvajal renal fxn stable on flomax, proscar and urecholine Subjective Allergies: Coded Allergies: CEPHALEXIN (Verified Allergy, Mild, 09/15/18) SKIN RASH Subjective all noted, voiding, comfortable Objective Last 24 Hour Vital Signs Date Time Temp Pulse Resp B/P (MAP) Pulse Ox O2 Delivery O2 Flow Rate FiO2 09/16/18 09:15 104/46 (65) 09/16/18 09:00 97.6 09/16/18 08:06 207.7 72 20 98 09/16/18 08:02 97.7 09/16/18 08:00 97.2 62 18 97/58 (71) 98 97.2 09/16/18 04:44 97.7 54 19 115/61 (79) 97 97.7 09/16/18 04:00 97.7 62 18 115/61 (79) 98 97.7 09/16/18 00:34 97.6 62 18 119/58 (78) 98 97.6 09/15/18 21:00 Room Air 09/15/18 20:36 97.2 66 19 114/53 (73) 98 97.2 09/15/18 17:35 98.3 09/15/18 15:15 98.3 61 20 116/87 (97) 98 98.3 09/15/18 14:15 98.0 54 19 112/85 (94) 96 98.0 09/15/18 13:45 98.4 61 20 109/65 (80) 96 98.4 09/15/18 13:45 Room Air 09/15/18 13:30 97.6 57 20 126/65 98 Room Air 97.6 09/15/18 13:20 60 19 117/63 98 Room Air 09/15/18 13:10 61 18 111/58 98 Room Air 09/15/18 13:05 63 19 113/62 95 Room Air 09/15/18 12:55 60 20 115/63 98 Room Air 09/15/18 12:45 62 18 122/70 96 Room Air 09/15/18 12:42 62 18 123/63 98 Simple Mask 6 09/15/18 12:37 61 17 123/63 98 Simple Mask 6 09/15/18 12:33 207.7 61 16 99 09/15/18 12:32 97.6 80 25 103/63 98 Simple Mask 6 97.6 09/15/18 09:39 97.8 56 20 112/59 (76) 99 97.8 09/15/18 09:35 Room Air Intake and Output 09/15/18 09/16/18 19:00 07:00 Intake Total 1750 ml 2025 ml Output Total 0 ml 1430 ml Balance 1750 ml 595 ml Intake Oral 700 ml 1200 ml IV Total 1050 ml 825 ml Output Urine Total 1430 ml Estimated Blood Loss 0 ml # Voids 4 Current Medications Medications (Trade) Dose Ordered Sig/Yuri Route PRN Reason Start Time Stop Time Status Last Admin Dose Admin Acetaminophen (Tylenol) 650 mg Q6H PRN ORAL Mild Pain/Temp > 100.5 09/15/18 11:00 10/15/18 10:59 Acetaminophen/ Hydrocodone Bitart ([place] 5/325) 1 tab Q4H PRN ORAL moderate to severe (4-10) pain 09/15/18 13:32 09/22/18 13:31 09/16/18 03:41 Atorvastatin Calcium (Lipitor) 40 mg QHS ORAL 09/15/18 21:00 10/15/18 20:59 09/15/18 21:24 Bethanechol Chloride (Urecholine) 25 mg THREE TIMES A DAY ORAL 09/16/18 09:00 10/16/18 08:59 09/16/18 08:58 Celecoxib (CeleBREX) 200 mg DAILY ORAL 09/16/18 09:00 10/16/18 08:59 09/16/18 08:59 Clindamycin HCl/ Dextrose 50 ml @ 100 mls/hr Q6H IV 09/15/18 15:00 09/16/18 09:29 09/16/18 09:00 Dextrose/Sodium Chloride 1,000 ml @ 75 mls/hr Q13H IV 09/15/18 14:02 10/15/18 14:01 09/15/18 16:24 Docusate Sodium (Colace) 100 mg THREE TIMES A DAY ORAL 09/15/18 18:00 10/15/18 17:59 09/16/18 08:58 Enoxaparin Sodium (Lovenox) 30 mg EVERY 12 HOURS SUBQ 09/15/18 21:00 10/15/18 20:59 09/16/18 09:09 Finasteride (Proscar) 5 mg DAILY ORAL 09/16/18 09:00 10/16/18 08:59 09/16/18 08:58 Hydromorphone HCl (Dilaudid) 0.5 mg Q4H PRN SUBQ Mild Pain (Pain Scale 1-3) 09/15/18 11:00 09/22/18 10:59 Hydromorphone HCl (Dilaudid) 1 mg Q3H PRN SUBQ Moderate Pain (Pain Scale 4-6) 09/15/18 11:00 09/22/18 10:59 09/15/18 22:32 Hydromorphone HCl (Dilaudid) 2 mg Q2H PRN SUBQ Severe Pain (Pain Scale 7-10) 09/15/18 13:30 09/22/18 13:29 09/16/18 07:32 Ondansetron HCl (Zofran) 4 mg Q6H PRN IVP Nausea & Vomiting 09/15/18 11:00 10/15/18 10:59 Oxycodone HCl (OxyCONTIN) 20 mg EVERY 12 HOURS ORAL 09/15/18 21:00 09/22/18 20:59 09/16/18 09:00 Tamsulosin HCl (Flomax) 0.4 mg BEDTIME ORAL 09/15/18 21:00 10/15/18 20:59 09/15/18 21:22 Temazepam (Restoril) 7.5 mg HSPRN PRN ORAL Insomnia 09/15/18 11:00 09/22/18 10:59 09/16/18 02:01 Laboratory Tests 09/16/18 06:05: White Blood Count 9.6, Red Blood Count 3.70L, Hemoglobin 11.4L, Hematocrit 34.2L , Mean Corpuscular Volume 93, Mean Corpuscular Hemoglobin 30.8, Mean Corpuscular Hemoglobin Concent 33.2, Red Cell Distribution Width 12.7, Platelet Count 219, Mean Platelet Volume 6.4L, Neutrophils (%) (Auto) 69.5, Lymphocytes ( %) (Auto) 18.8L, Monocytes (%) (Auto) 8.4, Eosinophils (%) (Auto) 2.5, Basophils (%) (Auto) 0.8, Sodium Level 139, Potassium Level 3.7, Chloride Level 103, Carbon Dioxide Level 28, Anion Gap 8, Blood Urea Nitrogen 20H, Creatinine 0.8, Estimat Glomerular Filtration Rate > 60, Glucose Level 108H, Calcium Level 8.5 Height (Feet): 5 Height (Inches): 8.50 Weight (Pounds): 246 HAYLIE NGUYEN Sep 16, 2018 09:20
[2018-09-16 12:00] VITALS: BP 110/57
== END 2018-09-16 17:00 | disposition home or self-care (01) | DRG 502 ==
LOC: SDSOVERFLO 08:45 → 3E 13:45
PROC: 0LQR0ZZ Repair Left Knee Tendon, Open Approach (ICD-10-PCS; principal; 2018-09-15 10:30)
DX: S76.112A Strain of left quadriceps muscle, fascia and tendon, initial encounter (principal); W19.XXXA Unspecified fall, initial encounter; M12.562 Traumatic arthropathy, left knee; Z96.652 Presence of left artificial knee joint; Z88.1 Allergy status to other antibiotic agents; N31.9 Neuromuscular dysfunction of bladder, unspecified; N40.1 Benign prostatic hyperplasia with lower urinary tract symptoms; R33.8 Other retention of urine; Z98.1 Arthrodesis status; F17.200 Nicotine dependence, unspecified, uncomplicated
CPT/HCPCS: 36415; 80048; 85025; 86850; 86900; 86901; 86920; 87081; 94003; 94150; J2405; S0077